=== PATIENT | male | born 1990 | race Caucasian/White ===

== ENCOUNTER 2020-03-20 10:11 | Inpatient (IN) | payer SELFPAY ==
[2020-03-20] MEDS ORDERED: Labetalol 100 MG/20 ML MDV IVPUSH ONE (11:07)
[2020-03-20] MEDS ORDERED: Lisinopril/Hydrochlorothiazide 10-12.5 MG Tab PO ONE (11:08)
[2020-03-20] MEDS ORDERED: Sodium Chloride 0.9% 10 ML Syringe FLUSH PRN (11:08)
[2020-03-20] MEDS ORDERED: Sodium Chloride 0.9% 2.5 ML Syringe FLUSH PRN ×2 (11:08→13:25)
--- NOTE | 2020-03-20 11:27 | EDM.PDOC ---
ED HPI GENERAL MEDICAL PROBLEM - General Chief Complaint: General Stated Complaint: BODY ACHES Time Seen by Provider: 03/20/20 10:41 Source of Information: Reports: Patient History Limitations: Reports: No Limitations - History of Present Illness INITIAL COMMENTS - FREE TEXT/NARRATIVE: Presents to the emergency room reporting a 4-day history of feeling "like crap". He reports headache, dizziness, shortness of breath, chills and 1 day of fever up to 101.2. He reports no cough, chest pain, ear fullness, sinus congestion. He has taken DayQuil, NyQuil and cough drops without palliation. He did report that he had a cold symptoms about a week ago. No known Covid exposures. 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 He does not smoke. He has a history of hypertension and dyslipidemia as well as obesity. He has a prescription for his antihypertensive and gemfibrozil medications but he states he has not been taking them for the last 3 to 4 weeks. "I just forgot about them". He is unsure of his blood pressure medications but one is lisinopril/hctz. He has been slightly nauseated but has not vomited and is trying to keep his fluid intake up to 128 ounces a day. right upper abdomen Pain Score (Numeric/FACES): 0 - Related Data Allergies Allergy/AdvReac Type Severity Reaction Status Date / Time No Known Allergies Allergy Verified 03/20/20 10:34 Home Meds: Home Meds . [No Known Home Meds] 03/20/20 [History] Past Medical History Cardiovascular History: Reports: Hypertension - Infectious Disease History Infectious Disease History: Reports: Chicken Pox - Past Surgical History HEENT Surgical History: Reports: Oral Surgery, Tonsillectomy Social & Family History - Family History Family Medical History: No Pertinent Family History - Tobacco Use Tobacco Use Status *Q: Former Tobacco User Used Tobacco, but Quit: Yes Month/Year Tobacco Last Used: 2019 - Caffeine Use Caffeine Use: Reports: None - Recreational Drug Use Recreational Drug Use: No ED ROS GENERAL - Review of Systems Review Of Systems: Comprehensive ROS is negative, except as noted in HPI. ED EXAM, GENERAL - Physical Exam Exam: See Below General Appearance: Alert, No Apparent Distress Ears: Normal External Exam, Normal TMs Nose: Normal Inspection Throat/Mouth: Normal Inspection, Normal Oropharynx Head: Atraumatic, Normocephalic Neck: Normal Inspection Respiratory/Chest: No Respiratory Distress, Lungs Clear, Normal Breath Sounds Cardiovascular: Normal Peripheral Pulses, Regular Rate, Rhythm, No Murmur GI/Abdominal: Normal Bowel Sounds, Soft, No Organomegaly, Other (Right upper quadrant tenderness) Extremities: Normal Inspection Neurological: Alert, Oriented Psychiatric: Normal Affect, Normal Mood Skin Exam: Warm, Dry, Intact, Normal Color, No Rash Lymphatic: No Adenopathy Course - Vital Signs Last Recorded V/S: Last Vital Signs Temp 35.7 C L 03/20/20 10:34 Pulse 95 03/20/20 10:50 Resp 18 03/20/20 10:50 BP 162/94 H 03/20/20 10:34 Pulse Ox 94 L 03/20/20 10:53 - Orders/Labs/Meds Orders: Active Orders 24 hr Category Date Time Status Chest 1V Frontal [CR] Stat Exams 03/20/20 11:01 Ordered CBC WITH AUTO DIFF [HEME] Stat Lab 03/20/20 11:06 Ordered COMPREHENSIVE METABOLIC PN,CMP [CHEM] Stat Lab 03/20/20 11:06 Ordered CORONAVIRUS COVID-19 PCR PHL Stat Lab 03/20/20 10:56 Stop Req CORONAVIRUS COVID-19 RAPID [MOLEC] Stat Lab 03/20/20 10:56 Received Sodium Chloride 0.9% [Saline Flush] Med 03/20/20 11:08 Ordered 10 ml FLUSH ASDIRECTED PRN Sodium Chloride 0.9% [Saline Flush] Med 03/20/20 11:08 Ordered 2.5 ml FLUSH ASDIRECTED PRN Saline Lock Insert [OM.PC] Stat Oth 03/20/20 11:08 Ordered Medication Orders Sodium Chloride (Saline Flush) 10 ml FLUSH ASDIRECTED PRN PRN Reason: Keep Vein Open Sodium Chloride (Saline Flush) 2.5 ml FLUSH ASDIRECTED PRN PRN Reason: Keep Vein Open Meds: Medications Generic Name Dose Route Start Last Admin Trade Name Freq PRN Reason Stop Dose Admin Sodium Chloride 10 ml 03/20/20 11:08 Saline Flush FLUSH ASDIRECTED PRN Keep Vein Open Sodium Chloride 2.5 ml 03/20/20 11:08 Saline Flush FLUSH ASDIRECTED PRN Keep Vein Open Discontinued Medications Generic Name Dose Route Start Last Admin Trade Name Freq PRN Reason Stop Dose Admin Lisinopril/HCTZ 2 tab 03/20/20 11:08 Lisinopril-Hctz 10-12.5 Mg PO 03/20/20 11:09 ONETIME ONE Labetalol HCl 20 mg 03/20/20 11:07 Normodyne IVPUSH 03/20/20 11:08 ONETIME ONE Protocol Departure - Departure Time of Disposition: 12:52 Disposition: Admitted As Inpatient 68 Condition: Fair Clinical Impression: COVID-19, Hypoxemia, Pneumonia due to 2019 novel coronavirus - Discharge Information Referrals: PCP,Not In Area [Primary Care Provider] - Sepsis Event Note (ED) - Evaluation Sepsis Screening Result: Possible Sepsis Risk - Focused Exam Vital Signs: Vital Signs Temp Pulse Resp BP Pulse Ox 03/20/20 10:53 94 L 03/20/20 10:50 95 18 88 L 03/20/20 10:34 35.7 C L 108 H 19 162/94 H 90 L - My Orders Last 24 Hours: My Active Orders 03/20/20 10:56 CORONAVIRUS COVID-19 PCR PHL Stat CORONAVIRUS COVID-19 RAPID [MOLEC] Stat 03/20/20 11:01 Chest 1V Frontal [CR] Stat 03/20/20 11:06 CBC WITH AUTO DIFF [HEME] Stat COMPREHENSIVE METABOLIC PN,CMP [CHEM] Stat 03/20/20 11:08 Sodium Chloride 0.9% [Saline Flush] 10 ml FLUSH ASDIRECTED PRN Sodium Chloride 0.9% [Saline Flush] 2.5 ml FLUSH ASDIRECTED PRN Saline Lock Insert [OM.PC] Stat - Assessment/Plan Last 24 Hours: My Active Orders 03/20/20 10:56 CORONAVIRUS COVID-19 PCR PHL Stat CORONAVIRUS COVID-19 RAPID [MOLEC] Stat 03/20/20 11:01 Chest 1V Frontal [CR] Stat 03/20/20 11:06 CBC WITH AUTO DIFF [HEME] Stat COMPREHENSIVE METABOLIC PN,CMP [CHEM] Stat 03/20/20 11:08 Sodium Chloride 0.9% [Saline Flush] 10 ml FLUSH ASDIRECTED PRN Sodium Chloride 0.9% [Saline Flush] 2.5 ml FLUSH ASDIRECTED PRN Saline Lock Insert [OM.PC] Stat
[2020-03-20] MEDS ORDERED: Dexamethasone 4 MG Tab PO ONE (11:59)
[2020-03-20] MEDS ORDERED: Albuterol 6.7 GM Inhaler INH ONE (12:04)
[2020-03-20] MEDS ORDERED: Albuterol HFA 18 Gm Inhaler ONE (12:20)
[2020-03-20 12:25] LABS: BLOOD UREA NITROGEN,BUN 9 mg/dL (7.0-18.0); CHLORIDE,CL 99 mmol/L (98-107); GLUCOSE RANDOM 116 mg/dL (74-106); POTASSIUM,K 4.1 mmol/L (3.5-5.1); SODIUM,NA 136 mmol/L (136-148)
--- NOTE | 2020-03-20 12:25 | CR ---
Indication: Shortness of breath Technique: Chest 1 view Comparison: None Findings/Impression: Cardiovascular and mediastinum: Heart size appears within normal limits given AP technique and a lordotic projection. Pulmonary vasculature also appears within normal limits. Lungs and pleural space: Left upper lobe infiltrate consistent with pneumonia. COVID viral infection is possible. Smaller infiltrate may be present in the left lower lobe. Right lung is clear. No effusions and no pneumothorax. Bones and soft tissues: No acute findings. Dictated by Hossein Christy MD @ Mar 20 2020 12:21PM Signed by Dr. Hossein Christy @ Mar 20 2020 12:24PM
[2020-03-20] MEDS ORDERED: Ondansetron 4 MG/2 ML SDV IVPUSH PRN (13:17)
[2020-03-20] MEDS ORDERED: REMDESIVIR 200 MG in Sodium Chloride 0.9% 250 ML IV ONE (13:24)
[2020-03-20] MEDS ORDERED: Sodium Chloride 0.9% 500 ML IV ONE (13:25)
[2020-03-20] MEDS ORDERED: Pantoprazole 40 MG in Sodium Chloride 0.9% 10 ML IV ONE (13:25)
[2020-03-20] MEDS ORDERED: Acetaminophen 325 MG Tab PO PRN (13:25)
--- NOTE | 2020-03-20 13:35 | PCM.HP.2 ---
H&P History of Present Illness - General Date of Service: 03/20/20 Admit Problem/Dx: Admission Diagnosis/Problem Admission Diagnosis/Problem Hypoxemia Source of Information: Patient History Limitations: Reports: No Limitations - History of Present Illness Initial Comments - Free Text/Narative: This 29-year-old male with PMH of HTN and HLD along with obesity presented to the ER with complaints of neurolyse malaise and shortness of breath. He reports that approximately 1 week ago he started feeling like he was getting a cold with some mild sinus congestion and overall just not feeling well. He reports the last 3 to 4 days he had significantly worsened with fevers chills increasing shortness of breath with any activity dry cough along with nausea and vomiting. He denies any chest pain or palpitations. No abdominal pain no constipation or diarrhea. He reports he is urinating fine. He denies any focal neurological deficits. He reports that he has been to community with no known exposure to COVID-19. Denies any flu shot recently and declines a flu shot during this admission. He reports he has not tried any Tylenol or ibuprofen to help with headache. Reports the headache is more frontal no blurred vision or double vision. Denies any noise or light intolerance. He reports he quit smoking and using chewing tobacco approximately 1 year ago as well as quitting alcohol use. He denies any recreational drug use now. He reports that he has a history of hypertension and hyperlipidemia but has not taken meds for over 2 months. He reports he got his medications filled and [place] and has just not taken them. He reports no specific reason except for becky t he has forgotten. In the ER no leukocytosis noted hemoglobin noted at 15. Glucose 116 BUN creati nine stable no electrolyte abnormalities. AST ALT noted to be elevated at 119 and 151 respectively. Chest x-ray revealed left upper lobe infiltrate consistent with pneumonia Covid viral infection is possible small infiltrate may be present in left lower lobe right lung is clear no effusions or pneumothorax noted. He was treated with dexamethasone 6 mg in the ER. He was also noted to be hypoxic with sats 88% on room air with tachypnea on arrival. He was placed on 2 L satting 92 to 94% on this. He was also noted to be hypertensive 190s/ 110. He was given labetalol IV as well as lisinopril hydrochlorothiazide orally. Blood pressures have improved. He will be admitted for acute hypoxic respiratory failure and COVID-19 pneumonia as well as CAP. right upper abdomen Pain Score (Numeric/FACES): 0 - Related Data Allergies/Adverse Reactions: Allergies Allergy/AdvReac Type Severity Reaction Status Date / Time No Known Allergies Allergy Verified 03/20/20 10:34 Home Medications: Home Meds amLODIPine Besylate [Amlodipine Besylate] 10 mg PO DAILY 03/20/20 [History] cloNIDine [Catapres] 0.1 mg PO BID 03/20/20 [History] gemfibroziL [Gemfibrozil] 600 mg PO BID 03/20/20 [History] hydroCHLOROthiazide [Hydrochlorothiazide] 25 mg PO DAILY 03/20/20 [History] lisinopriL [Lisinopril] 40 mg PO DAILY 03/20/20 [History] Past Medical History Cardiovascular History: Reports: High Cholesterol, Hypertension. Denies: Afib, Blood Clots/VTE/DVT, CAD Respiratory History: Reports: None. Denies: Sleep Apnea, SOB Gastrointestinal History: Reports: None Musculoskeletal History: Reports: None Neurological History: Reports: None Endocrine/Metabolic History: Reports: Obesity/BMI 30+. Denies: Diabetes, Type II - Infectious Disease History Infectious Disease History: Reports: Chicken Pox - Past Surgical History HEENT Surgical History: Reports: Oral Surgery, Tonsillectomy Social & Family History - Family History Family Medical History: No Pertinent Family History - Tobacco Use Tobacco Use Status *Q: Former Tobacco User Used Tobacco, but Quit: Yes Month/Year Tobacco Last Used: 2019 - Caffeine Use Caffeine Use: Reports: None - Alcohol Use Alcohol Use History: No Alcohol Use Comment: Quit alcohol use approximately 1 year ago - Recreational Drug Use Recreational Drug Use: No - Living Situation & Occupation Living situation: Reports: Single Occupation: Employed H&P Review of Systems - Review of Systems: Review Of Systems: See Below General: Reports: Fever, Chills, Malaise, Weakness, Fatigue, Decreased Appetite HEENT: Reports: Headaches (Frontal), Sinus Congestion. Denies: Visual Changes Pulmonary: Reports: Shortness of Breath, Cough. Denies: Sputum, Hemoptysis Cardiovascular: Reports: Dyspnea on Exertion, Lightheadedness. Denies: Chest Pain Gastrointestinal: Reports: Decreased Appetite, Nausea, Vomiting. Denies: Abdominal Pain, Black Stool, Bloody Stool, Diarrhea Genitourinary: Reports: No Symptoms. Denies: Dysuria, Frequency, Burning Musculoskeletal: Reports: No Symptoms Skin: Reports: No Symptoms. Denies: Rash Psychiatric: Reports: No Symptoms Neurological: Reports: No Symptoms. Denies: Confusion Hematologic/Lymphatic: Reports: No Symptoms Immunologic: Reports: No Symptoms Exam - Exam Exam: See Below - Vital Signs Vital Signs: Last Vital Signs Temp 96.3 F L 03/20/20 10:34 Pulse 95 03/20/20 12:04 Resp 21 H 03/20/20 12:04 BP 132/94 H 03/20/20 12:04 Pulse Ox 92 L 03/20/20 12:04 Weight: 170.097 kg - Exam Quality Assessment: Supplemental Oxygen (2 L), DVT Prophylaxis (Lovenox) General: Alert, Oriented, Cooperative, Mild Distress (Noted to be dyspneic and lightheaded with movement.) HEENT: Conjunctiva Clear, Posterior Pharynx Clear. No: Mucosa Moist & [place] (Dry) Lungs: Decreased Breath Sounds (Bibasilar), Crackles (Right and left lower lobes). No: Normal Respiratory Effort (Dyspnea noted with exertion and at re st), Wheezing Cardiovascular: Regular Rate, Regular Rhythm, Normal S2. No: Systolic Murmur GI/Abdominal Exam: Normal Bowel Sounds, Soft, Non-Tender, No Mass, Other (Obese abdomen limits assessment) Extremities: Normal Inspection, Normal Range of Motion, Non-Tender, No Pedal Edema Skin: Warm, Dry Neuro Extensive - Mental Status: Alert, Oriented x3 Neuro Extensive - Motor, Sensory, Reflexes: CN II-XII Intact Psychiatric: Alert, Normal Affect, Normal Mood - Patient Data Lab Results Last 24 hrs: Laboratory Results - last 24 hr 03/20/20 03/20/20 03/20/20 Range/Units 10:56 11:40 11:40 WBC 7.77 (4.0-11.0) K/uL RBC 4.95 (4.50-5.90) M/uL Hgb 15.0 (13.0-17.0) g/dL Hct 44.3 (38.0-50.0) % MCV 89.5 (80.0-98.0) fL MCH 30.3 (27.0-32.0) pg MCHC 33.9 (31.0-37.0) g/dL RDW Std Deviation 45.4 (28.0-62.0) fl RDW Coeff of Myrtle 14 (11.0-15.0) % Plt Count 229 (150-400) K/uL MPV 10.20 (7.40-12.00) fL Neut % (Auto) 80.9 H (48.0-80.0) % Lymph % (Auto) 13.1 L (16.0-40.0) % Mobile % (Auto) 5.9 (0.0-15.0) % Eos % (Auto) 0.0 (0.0-7.0) % Baso % (Auto) 0.1 (0.0-1.5) % Neut # (Auto) 6.3 H (1.4-5.7) K/uL Lymph # (Auto) 1.0 (0.6-2.4) K/uL Mobile # (Auto) 0.5 (0.0-0.8) K/uL Eos # (Auto) 0.0 (0.0-0.7) K/uL Baso # (Auto) 0.0 (0.0-0.1) K/uL Nucleated RBC % 0.0 /100WBC Nucleated RBCs # 0 K/uL Sodium 136 (136-148) mmol/L Potassium 4.1 (3.5-5.1) mmol/L Chloride 99 (98-107) mmol/L Carbon Dioxide 25.0 (21.0-32.0) mmol/L BUN 9 (7.0-18.0) mg/dL Creatinine 1.0 (0.8-1.3) mg/dL Est Cr Clr Drug Dosing 132.62 mL/min Estimated GFR (MDRD) > 60.0 ml/min Glucose 116 H (74-106) mg/dL Calcium 8.5 (8.5-10.1) mg/dL Total Bilirubin 0.6 (0.2-1.0) mg/dL AST 119 H (15-37) IU/L ALT 151 H (14-63) IU/L Alkaline Phosphatase 57 (46-116) U/L Total Protein 7.4 (6.4-8.2) g/dL Albumin 3.1 L (3.4-5.0) g/dL Globulin 4.3 H (2.6-4.0) g/dL Albumin/Globulin Ratio 0.7 L (0.9-1.6) SARS CoV-2 RNA Rapid JACINTA POSITIVE H (NEGATIVE) Result Diagrams: 03/20/20 11:40 03/20/20 11:40 Sepsis Event Note - Evaluation Sepsis Screening Result: Possible Sepsis Risk - Focused Exam Vital Signs: Vital Signs Temp Pulse Resp BP Pulse Ox 03/20/20 12:04 95 21 H 132/94 H 92 L 03/20/20 11:54 92 27 H 130/77 90 L 03/20/20 11:41 88 20 123/75 93 L 03/20/20 11:26 102 H 20 197/115 H 94 L 03/20/20 10:53 94 L 03/20/20 10:50 95 18 88 L 03/20/20 10:34 96.3 F L 108 H 19 162/94 H 90 L - Problem List (1) Acute respiratory failure with hypoxia SNOMED Code(s): 64779882, 823233123 ICD Code: J96.01 - ACUTE RESPIRATORY FAILURE WITH HYPOXIA Status: Acute Current Visit: Yes (2) COVID-19 SNOMED Code(s): 910355338 ICD Code: U07.1 - COVID-19 Status: Acute Current Visit: Yes (3) CAP (community acquired pneumonia) SNOMED Code(s): 551925548 ICD Code: J18.9 - PNEUMONIA, UNSPECIFIED ORGANISM Status: Acute Current Visit: Yes (4) Obesity SNOMED Code(s): 815546823, 359622192 ICD Code: E66.9 - OBESITY, UNSPECIFIED Status: Chronic Current Visit: Yes (5) Hypertension, uncontrolled SNOMED Code(s): 12718887, 05244860 ICD Code: I10 - ESSENTIAL (PRIMARY) HYPERTENSION Status: Chronic Current Visit: Yes (6) HLD (hyperlipidemia) SNOMED Code(s): 05147493 ICD Code: E78.5 - HYPERLIPIDEMIA, UNSPECIFIED Status: Chronic Current Visit: Yes (7) Transaminitis SNOMED Code(s): 502636386, 512541600 ICD Code: R74.01 - ELEVATION OF LEVELS OF LIVER TRANSAMINASE LEVELS Status: Acute Current Visit: Yes Problem List Initiated/Reviewed/Updated: Yes Orders Last 24hrs: Active Orders 24 hr Category Date Time Status Patient Status [ADT] Stat ADT 03/20/20 12:42 Active Intake and Output [RC] QSHIFT Care 03/20/20 13:26 Ordered Oxygen Therapy [RC] PRN Care 03/20/20 13:25 Ordered RT Post Treatment Assessment [RC] Click to Edit Care 03/20/20 12:04 Active RT Pre-Treatment Assessment [RC] Click to Edit Care 03/20/20 12:04 Active Up With Assistance [RC] ASDIRECTED Care 03/20/20 13:25 Ordered VTE/DVT Education [RC] PER UNIT ROUTINE Care 03/20/20 13:25 Ordered Vital Signs [RC] Q4H Care 03/20/20 13:25 Ordered Regular Diet [DIET] Diet 03/20/20 Lunch Ordered Ang Chest [CT] Urgent Exams 03/20/20 13:25 Ordered CBC WITH AUTO DIFF [HEME] AM Lab 03/21/20 05:11 Ordered COMPREHENSIVE METABOLIC PN,CMP [CHEM] AM Lab 03/21/20 05:11 Ordered CORONAVIRUS COVID-19 PCR PHL Stat Lab 03/20/20 10:56 Stop Req MAGNESIUM [CHEM] AM Lab 03/21/20 05:11 Ordered Acetaminophen [TylenoL] Med 03/20/20 13:25 Ordered 650 mg PO Q4H PRN Enoxaparin [Lovenox] Med 03/20/20 13:30 Ordered 40 mg SUBCUT Q12H Ondansetron [Zofran] Med 03/20/20 13:17 Active 4 mg IVPUSH Q4H PRN Pantoprazole [ProTONIX IV] 40 mg Med 03/20/20 13:25 Ordered Sodium Chloride 0.9% [Normal Saline] 10 ml IV ONETIME Remdesivir 100 mg Med 03/21/20 13:30 Ordered Sodium Chloride 0.9% [Normal Saline] 100 ml IV Q24H Remdesivir 200 mg Med 03/20/20 13:24 Ordered Sodium Chloride 0.9% [Normal Saline] 250 ml IV ONETIME Sodium Chloride 0.9% [Normal Saline] 500 ml Med 03/20/20 13:25 Ordered IV ONETIME Sodium Chloride 0.9% [Saline Flush] Med 03/20/20 13:25 Ordered 2.5 ml FLUSH ASDIRECTED PRN dexAMETHasone Med 03/21/20 09:00 Ordered 6 mg PO DAILY Saline Lock Insert [OM.PC] Routine Oth 03/20/20 13:25 Ordered Saline Lock Insert [OM.PC] Stat Oth 03/20/20 11:08 Ordered Resuscitation Status Routine Resus Stat 03/20/20 13:25 Ordered Medication Orders Ondansetron HCl (Zofran) 4 mg IVPUSH Q4H PRN PRN Reason: Nausea Assessment/Plan Comment:: This 29-year-old male admitted with acute hypoxic respiratory failure COVID-19 pneumonia and CAP 1. Acute hypoxic respiratory failure/COVID-19 pneumonia/CAP -Oxygen to keep sats greater than 90% wean as possible. -Start remdesivir 200 mg IV x1 dose then 100 mg IV daily x4 doses -Dexamethasone 6 mg p.o. daily -Encouraged prone or at least left side-lying position to encourage oxygenation. He verbalized understanding -I-S and Acapella use -We will give Levaquin 750 mg IV daily for possible CAP -We will obtain CTA of the chest to rule out a blood clot and to further evaluate opacities noted on chest x-ray -Lovenox 40 mg every 12 -Monitor LFTs daily with remdesivir treatment -Does seem slightly dehydrated secondary to nausea and vomiting from COVID-19 we will give 500 ml NS bolus now and monitor -Discussed convalescent plasma administration with him. I have spoken with Deonte and provided information regarding convalescent plasma. I offered them the "fact sheet for patients and parents/caregivers" for COVID-19 convalescent zack encinas to read and review. He discussed this with his sister via the phone as well. As stated the therapy has been approved by emergency use authorization process and has not fully been FDA reviewed or approved. I shared potential risks from the therapy including transmission of blood-borne pathogen such as HIV and hepatitis C, allergic and transfusion related reactions, post transfusion purpura. Additionally theoretical risks include a phenomenon called antibody dependent enhancement of infection or attenuation of immune response that may make patients more susceptible to reinfection. I discussed there are other potential treatments options that are currently not FDA approved to treat COVID-19. All questions and concerns addressed and answered. Patient and family voiced understanding and agreed to proceed with treatment with convalescent plasma. Consent signed and placed in chart. 2. Transaminitis -Likely related to viral infection - will monitor daily 3. Hypertension uncontrolled/HLD -We will obtain medications most recently prescribed by PCP [place] -Monitor blood pressure and slowly restart medications VTE prophylaxis: Lovenox CODE STATUS: Full code Dispo: 2 to 3 days pending improvement
[2020-03-20] MEDS ORDERED: Albuterol/Ipratropium 4 GM Inhalation Spray INH PRN (13:48)
[2020-03-20] MEDS: Levofloxacin/Dextrose 5%-Water 750 MG in Premix Bag 1 BAG IV SCH (13:56)
[2020-03-20] MEDS: Enoxaparin 40 MG/0.4 ML Syringe SUBCUT SCH (13:57)
[2020-03-20 14:01] LABS: HEMOGLOBIN A1C 5.4 %
[2020-03-20] MEDS ORDERED: Iopamidol 755 MG/ML 500 ML Multipack Bottle IVPUSH STA (15:09)
--- NOTE | 2020-03-20 16:08 | CT ---
INDICATION: COVID positive, hypoxia, dyspnea TECHNIQUE: CT chest pulmonary PE protocol acquired with 75 cc Isovue 370 COMPARISON: Chest radiograph from same date FINDINGS: Cardiovascular structures: Suboptimal opacification of the pulmonary arteries. Although no large central pulmonary embolism is seen, the remainder of the pulmonary arterial tree cannot be adequately evaluated with this exam. Heart size is normal. No sign of aneurysm in the thoracic aorta. Mediastinum and edward: 1.0 cm right paratracheal lymph node Lungs: Patchy ground-glass and airspace opacities in both lungs. Pleura and pericardium: Trace bilateral effusions. Chest wall and axilla: No mass or adenopathy. Upper abdomen: Unremarkable. Bones: No significant findings. IMPRESSION: Suboptimal opacification of the pulmonary arteries. Although no large central pulmonary embolism is seen, the remainder of the pulmonary arterial tree cannot be adequately evaluated with this exam. Patchy ground-glass and airspace opacities in both lungs may represent COVID-19 or combination of COVID-19 and superimposed bacterial infection. Please note that all CT scans at this facility use dose modulation, iterative reconstruction, and/or weight-based dosing when appropriate to reduce radiation dose to as low as reasonably achievable. Dictated by Jennifer Ojeda MD @ Mar 20 2020 4:01PM Signed by Dr. Jennifer Ojeda @ Mar 20 2020 4:06PM
[2020-03-20] MEDS: Gemfibrozil 600 MG Tab PO SCH (20:43)
[2020-03-20] MEDS: cloNIDine 0.1 MG Tab PO SCH (20:43)
[2020-03-20] MEDS: Benzonatate 100 MG Cap PO PRN (20:44)
[2020-03-21] MEDS: Enoxaparin 40 MG/0.4 ML Syringe SUBCUT SCH ×2 (01:15→13:22)
[2020-03-21 07:12] LABS: BLOOD UREA NITROGEN,BUN 15 mg/dL (7.0-18.0); CARBON DIOXIDE,CO2 28.3 mmol/L (21.0-32.0); CHLORIDE,CL 101 mmol/L (98-107); GLUCOSE RANDOM 130 mg/dL (74-106); POTASSIUM,K 4.4 mmol/L (3.5-5.1); SODIUM,NA 137 mmol/L (136-148)
[2020-03-21] MEDS: Hydrochlorothiazide 25 MG Tab PO SCH (09:27)
[2020-03-21] MEDS: Gemfibrozil 600 MG Tab PO SCH ×2 (09:28→22:10)
[2020-03-21] MEDS: cloNIDine 0.1 MG Tab PO SCH ×2 (09:28→22:10)
[2020-03-21] MEDS: Dexamethasone 4 MG Tab PO SCH (09:28)
[2020-03-21] MEDS: amLODIPine 5 MG Tab PO SCH (09:28)
[2020-03-21] MEDS: Lisinopril 10 MG Tab PO SCH (09:30)
--- NOTE | 2020-03-21 11:30 | PCM.PN ---
- General Info Date of Service: 03/21/20 Admission Dx/Problem (Free Text): Admission Diagnosis/Problem Admission Diagnosis/Problem Hypoxemia Functional Status: Reports: Pain Controlled, Tolerating Diet, Ambulating, Urinating - Review of Systems General: Reports: Weakness, Fatigue, Malaise, Night Sweats. Denies: Fever, Chills, Appetite HEENT: Denies: Dysphasia, Ear Pain, Eye Pain, Headaches Pulmonary: Reports: Shortness of Breath, Cough. Denies: Pleuritic Chest Pain, Sputum, Hemoptysis, Wheezing Cardiovascular: Reports: Dyspnea on Exertion. Denies: Chest Pain, Palpitations, Edema, Lightheadedness Gastrointestinal: Denies: Abdominal Pain, Constipation, Decreased Appetite Genitourinary: Denies: Frequency, Burning, Pain, Urgency Musculoskeletal: Denies: Neck Pain, Shoulder Pain, Arm Pain Skin: Denies: Cyanosis, Jaundice - Patient Data Vitals - Most Recent: Last Vital Signs Temp 36.4 C 03/21/20 09:25 Pulse 78 03/21/20 09:25 Resp 18 03/21/20 09:25 BP 130/78 03/21/20 09:30 Pulse Ox 93 L 03/21/20 09:25 Weight - Most Recent: 170.097 kg I&O - Last 24 Hours: Intake & Output 03/20/20 03/21/20 03/21/20 22:59 06:59 14:59 Intake Total 205 1000 Output Total 0 500 Balance 205 500 Lab Results Last 24 Hours: Laboratory Results - last 24 hr 03/20/20 03/20/20 03/20/20 Range/Units 11:40 11:40 11:40 WBC 7.77 (4.0-11.0) K/uL RBC 4.95 (4.50-5.90) M/uL Hgb 15.0 (13.0-17.0) g/dL Hct 44.3 (38.0-50.0) % MCV 89.5 (80.0-98.0) fL MCH 30.3 (27.0-32.0) pg MCHC 33.9 (31.0-37.0) g/dL RDW Std Deviation 45.4 (28.0-62.0) fl RDW Coeff of Myrtle 14 (11.0-15.0) % Plt Count 229 (150-400) K/uL MPV 10.20 (7.40-12.00) fL Neut % (Auto) 80.9 H (48.0-80.0) % Lymph % (Auto) 13.1 L (16.0-40.0) % Teller % (Auto) 5.9 (0.0-15.0) % Eos % (Auto) 0.0 (0.0-7.0) % Baso % (Auto) 0.1 (0.0-1.5) % Neut # (Auto) 6.3 H (1.4-5.7) K/uL Lymph # (Auto) 1.0 (0.6-2.4) K/uL Teller # (Auto) 0.5 (0.0-0.8) K/uL Eos # (Auto) 0.0 (0.0-0.7) K/uL Baso # (Auto) 0.0 (0.0-0.1) K/uL Nucleated RBC % 0.0 /100WBC Nucleated RBCs # 0 K/uL Sodium 136 (136-148) mmol/L Potassium 4.1 (3.5-5.1) mmol/L Chloride 99 (98-107) mmol/L Carbon Dioxide 25.0 (21.0-32.0) mmol/L BUN 9 (7.0-18.0) mg/dL Creatinine 1.0 (0.8-1.3) mg/dL Est Cr Clr Drug Dosing 132.62 mL/min Estimated GFR (MDRD) > 60.0 ml/min Glucose 116 H (74-106) mg/dL Hemoglobin A1c 5.4 (4.5 - 6.2) % Calcium 8.5 (8.5-10.1) mg/dL Magnesium (1.8-2.4) mg/dL Total Bilirubin 0.6 (0.2-1.0) mg/dL AST 119 H (15-37) IU/L ALT 151 H (14-63) IU/L Alkaline Phosphatase 57 (46-116) U/L Total Protein 7.4 (6.4-8.2) g/dL Albumin 3.1 L (3.4-5.0) g/dL Globulin 4.3 H (2.6-4.0) g/dL Albumin/Globulin Ratio 0.7 L (0.9-1.6) Blood Type Antibody Screen 03/20/20 03/21/20 03/21/20 Range/Units 16:05 05:38 05:38 WBC 7.48 (4.0-11.0) K/uL RBC 4.67 (4.50-5.90) M/uL Hgb 14.0 (13.0-17.0) g/dL Hct 42.5 (38.0-50.0) % MCV 91.0 (80.0-98.0) fL MCH 30.0 (27.0-32.0) pg MCHC 32.9 (31.0-37.0) g/dL RDW Std Deviation 46.7 (28.0-62.0) fl RDW Coeff of Myrtle 14 (11.0-15.0) % Plt Count 278 (150-400) K/uL MPV 10.50 (7.40-12.00) fL Neut % (Auto) 77.8 (48.0-80.0) % Lymph % (Auto) 14.7 L (16.0-40.0) % Teller % (Auto) 7.4 (0.0-15.0) % Eos % (Auto) 0.0 (0.0-7.0) % Baso % (Auto) 0.1 (0.0-1.5) % Neut # (Auto) 5.8 H (1.4-5.7) K/uL Lymph # (Auto) 1.1 (0.6-2.4) K/uL Teller # (Auto) 0.6 (0.0-0.8) K/uL Eos # (Auto) 0.0 (0.0-0.7) K/uL Baso # (Auto) 0.0 (0.0-0.1) K/uL Nucleated RBC % 0.0 /100WBC Nucleated RBCs # 0 K/uL Sodium 137 (136-148) mmol/L Potassium 4.4 (3.5-5.1) mmol/L Chloride 101 (98-107) mmol/L Carbon Dioxide 28.3 (21.0-32.0) mmol/L BUN 15 (7.0-18.0) mg/dL Creatinine 1.1 (0.8-1.3) mg/dL Est Cr Clr Drug Dosing 120.56 mL/min Estimated GFR (MDRD) > 60.0 ml/min Glucose 130 H (74-106) mg/dL Hemoglobin A1c (4.5 - 6.2) % Calcium 8.8 (8.5-10.1) mg/dL Magnesium 2.4 (1.8-2.4) mg/dL Total Bilirubin 0.6 (0.2-1.0) mg/dL AST 55 H (15-37) IU/L ALT 119 H (14-63) IU/L Alkaline Phosphatase 57 (46-116) U/L Total Protein 7.4 (6.4-8.2) g/dL Albumin 3.0 L (3.4-5.0) g/dL Globulin 4.4 H (2.6-4.0) g/dL Albumin/Globulin Ratio 0.7 L (0.9-1.6) Blood Type O POSITIVE Antibody Screen NEGATIVE Med Orders - Current: Current Medications Acetaminophen (Tylenol) 650 mg PO Q4H PRN PRN Reason: Pain (Mild 1-3)/fever Albuterol/Ipratropium (Combivent Respimat) 0 gm INH Q4H PRN PRN Reason: Dyspnea Amlodipine Besylate (Norvasc) 10 mg PO DAILY [facility] Last Admin: 03/21/20 09:28 Dose: 10 mg Documented by: Benzonatate (Tessalon Perles) 100 mg PO TID PRN PRN Reason: Cough Last Admin: 03/20/20 20:44 Dose: 100 mg Documented by: Clonidine HCl (Catapres) 0.1 mg PO BID [facility] Last Admin: 03/21/20 09:28 Dose: 0.1 mg Documented by: Dexamethasone (Dexamethasone) 6 mg PO DAILY [facility] Stop: 03/29/20 09:01 Last Admin: 03/21/20 09:28 Dose: 6 mg Documented by: Enoxaparin Sodium (Lovenox) 40 mg SUBCUT Q12H [facility] Last Admin: 03/21/20 01:15 Dose: 40 mg Documented by: Gemfibrozil (Lopid) 600 mg PO BID [facility] Last Admin: 03/21/20 09:28 Dose: 600 mg Documented by: Hydrochlorothiazide (Hydrochlorothiazide) 25 mg PO DAILY [facility] Last Admin: 03/21/20 09:27 Dose: 25 mg Documented by: Levofloxacin/Dextrose 750 mg/ (Premix) 150 mls @ 100 mls/hr IV Q24H [facility] Last Admin: 03/20/20 13:56 Dose: 100 mls/hr Documented by: Remdesivir 100 mg/ Sodium (Chloride) 100 mls @ 100 mls/hr IV Q24H [facility] Stop: 03/24/20 14:29 Lisinopril (Prinivil) 40 mg PO DAILY [facility] Last Admin: 03/21/20 09:30 Dose: 40 mg Documented by: Ondansetron HCl (Zofran) 4 mg IVPUSH Q4H PRN PRN Reason: Nausea Last Admin: 03/20/20 13:28 Dose: 4 mg Documented by: Sodium Chloride (Saline Flush) 2.5 ml FLUSH ASDIRECTED PRN PRN Reason: Keep Vein Open Discontinued Medications Albuterol (Proventil Hfa) 0 gm INH ONETIME ONE Stop: 03/20/20 12:05 Last Admin: 03/20/20 13:01 Dose: Not Given Documented by: Albuterol (Ventolin Hfa) Confirm Administered Dose 18 gm .ROUTE .STK-MED ONE Stop: 03/20/20 12:21 Last Admin: 03/20/20 12:27 Dose: 1 puff Documented by: Dexamethasone (Dexamethasone) 6 mg PO ONETIME ONE Stop: 03/20/20 12:00 Last Admin: 03/20/20 12:24 Dose: 6 mg Documented by: Lisinopril/HCTZ (Lisinopril-Hctz 10-12.5 Mg) 2 tab PO ONETIME ONE Stop: 03/20/20 11:09 Last Admin: 03/20/20 11:23 Dose: 2 tab Documented by: Remdesivir 100 mg/ Sodium (Chloride) 100 mls @ 100 mls/hr IV Q24H [facility] Stop: 03/24/20 14:29 Remdesivir 200 mg/ Sodium (Chloride) 250 mls @ 250 mls/hr IV ONETIME ONE Stop: 03/20/20 13:25 Last Admin: 03/20/20 14:26 Dose: 250 mls/hr Documented by: Sodium Chloride (Normal Saline) 500 mls @ 999 mls/hr IV ONETIME ONE Stop: 03/20/20 13:55 Last Admin: 03/20/20 14:25 Dose: 999 mls/hr Documented by: Pantoprazole Sodium 40 mg/ (Sodium Chloride) 10 mls @ 300 mls/hr IV ONETIME ONE Stop: 03/20/20 13:26 Last Admin: 03/20/20 13:59 Dose: 300 mls/hr Documented by: Iopamidol (Isovue Multipack-370 (76%)) 75 ml IVPUSH ONETIME STA Stop: 03/20/20 15:10 Last Admin: 03/20/20 15:18 Dose: 75 ml Documented by: Labetalol HCl (Normodyne) 20 mg IVPUSH ONETIME ONE; Protocol Stop: 03/20/20 11:08 Last Admin: 03/20/20 11:22 Dose: 20 mg Documented by: Sodium Chloride (Saline Flush) 10 ml FLUSH ASDIRECTED PRN PRN Reason: Keep Vein Open Last Admin: 03/20/20 11:23 Dose: 10 ml Documented by: Sodium Chloride (Saline Flush) 2.5 ml FLUSH ASDIRECTED PRN PRN Reason: Keep Vein Open Last Admin: 03/20/20 11:23 Dose: 2.5 ml Documented by: - Exam Quality Assessment: Supplemental Oxygen General: Alert, Oriented, Cooperative, Mild Distress Lungs: Decreased Breath Sounds, Crackles, Rales Cardiovascular: Regular Rate, Regular Rhythm, No Murmurs GI/Abdominal Exam: Normal Bowel Sounds, Soft, Non-Tender Sepsis Event Note - Evaluation Sepsis Screening Result: No Definite Risk - Focused Exam Vital Signs: Vital Signs Temp Pulse Resp BP BP Pulse Ox 03/21/20 09:30 130/78 03/21/20 09:28 130/78 03/21/20 09:25 36.4 C 78 18 130/72 93 L 03/21/20 01:00 36.3 C 88 20 128/68 92 L - Problem List & Annotations (1) Acute respiratory failure with hypoxia SNOMED Code(s): 71929804, 478581521 Code(s): J96.01 - ACUTE RESPIRATORY FAILURE WITH HYPOXIA Status: Acute Current Visit: Yes (2) CAP (community acquired pneumonia) SNOMED Code(s): 417682414 Code(s): J18.9 - PNEUMONIA, UNSPECIFIED ORGANISM Status: Acute Current Visit: Yes (3) COVID-19 SNOMED Code(s): 941069397 Code(s): U07.1 - COVID-19 Status: Acute Current Visit: Yes (4) Hypoxemia SNOMED Code(s): 860758593 Code(s): R09.02 - HYPOXEMIA Status: Acute Current Visit: Yes (5) Pneumonia due to 2019 novel coronavirus SNOMED Code(s): 007133141704779981 Code(s): U07.1 - COVID-19; J12.89 - OTHER VIRAL PNEUMONIA Status: Acute Current Visit: Yes (6) HLD (hyperlipidemia) SNOMED Code(s): 20058014 Code(s): E78.5 - HYPERLIPIDEMIA, UNSPECIFIED Status: Chronic Current Visit: Yes (7) Hypertension, uncontrolled SNOMED Code(s): 08812197, 01012610 Code(s): I10 - ESSENTIAL (PRIMARY) HYPERTENSION Status: Chronic Current Visit: Yes - Problem List Review Problem List Initiated/Reviewed/Updated: Yes - Plan Plan:: This 29-year-old male admitted with acute hypoxic respiratory failure COVID-19 pneumonia and CAP 1. Acute hypoxic respiratory failure/COVID-19 pneumonia/CAP -Oxygen to keep sats greater than 90% wean as possible. -cont 100 mg IV daily x4 doses total -Dexamethasone 6 mg p.o. daily -Encouraged prone or at least left side-lying position to encourage oxygenation again. -I-S and Acapella use -cont Levaquin 750 mg IV daily for possible CAP -We will obtain CTA of the chest to rule out a blood clot and to further evaluate opacities noted on chest x-ray -Lovenox 40 mg every 12 -Monitor LFTs daily with remdesivir treatment - 2nd unit of plasma to be transfused today 2. Transaminitis -Likely related to viral infection - improving 3. Hypertension uncontrolled/HLD -Monitor blood pressure and slowly restart medications VTE prophylaxis: Lovenox CODE STATUS: Full code Dispo: 2 to 3 days pending improvement
[2020-03-21] MEDS ORDERED: Albuterol/Ipratropium 4 GM Inhalation Spray INH SCH (12:45)
[2020-03-21] MEDS: Levofloxacin/Dextrose 5%-Water 750 MG in Premix Bag 1 BAG IV SCH (13:14)
[2020-03-21] MEDS ORDERED: REMDESIVIR 100 MG in Sodium Chloride 0.9% 100 ML IV SCH (13:30)
[2020-03-21] MEDS: REMDESIVIR 100 MG in Sodium Chloride 0.9% 100 ML IV SCH (13:33)
[2020-03-21] MEDS: Codeine/guaiFENesin 10-100 MG/5 ML Syrup 5 ML Cup PO PRN (13:33)
[2020-03-21] MEDS: Albuterol/Ipratropium 4 GM Inhalation Spray INH SCH ×3 (14:55→21:35)
[2020-03-22] MEDS: Benzonatate 100 MG Cap PO PRN ×2 (01:43→22:31)
[2020-03-22] MEDS: Enoxaparin 40 MG/0.4 ML Syringe SUBCUT SCH ×2 (01:43→13:42)
[2020-03-22] MEDS: Albuterol/Ipratropium 4 GM Inhalation Spray INH SCH ×6 (01:45→21:08)
[2020-03-22 06:36] LABS: BLOOD UREA NITROGEN,BUN 22 mg/dL (7.0-18.0); CARBON DIOXIDE,CO2 26.4 mmol/L (21.0-32.0); CHLORIDE,CL 102 mmol/L (98-107); GLUCOSE RANDOM 128 mg/dL (74-106); POTASSIUM,K 4.2 mmol/L (3.5-5.1); SODIUM,NA 138 mmol/L (136-148)
[2020-03-22] MEDS: cloNIDine 0.1 MG Tab PO SCH ×2 (08:37→20:03)
[2020-03-22] MEDS: Dexamethasone 4 MG Tab PO SCH (08:38)
[2020-03-22] MEDS: Gemfibrozil 600 MG Tab PO SCH ×2 (08:38→20:04)
[2020-03-22] MEDS: Hydrochlorothiazide 25 MG Tab PO SCH (08:39)
[2020-03-22] MEDS: amLODIPine 5 MG Tab PO SCH (08:39)
[2020-03-22] MEDS: Lisinopril 10 MG Tab PO SCH (08:40)
[2020-03-22] MEDS ORDERED: Furosemide 20 MG/2 ML VIAL IVPUSH ONE (10:08)
--- NOTE | 2020-03-22 13:18 | PCM.PN ---
- General Info Date of Service: 03/22/20 Admission Dx/Problem (Free Text): Admission Diagnosis/Problem Admission Diagnosis/Problem Hypoxemia Subjective Update: seen at bedside, no acute distress, states breathung is slightly better, continues to have cough Functional Status: Reports: Tolerating Diet, Ambulating, Urinating - Review of Systems General: Reports: Weakness, Fatigue. Denies: Fever Pulmonary: Reports: Shortness of Breath, Cough. Denies: Pleuritic Chest Pain, Sputum Cardiovascular: Reports: Dyspnea on Exertion. Denies: Chest Pain, Palpitations Gastrointestinal: Denies: Abdominal Pain, Constipation, Decreased Appetite, Diarrhea - Patient Data Vitals - Most Recent: Last Vital Signs Temp 36.6 C 03/22/20 12:00 Pulse 76 03/22/20 12:00 Resp 18 03/22/20 12:00 BP 98/53 L 03/22/20 12:00 Pulse Ox 95 03/22/20 12:00 Weight - Most Recent: 170.097 kg I&O - Last 24 Hours: Intake & Output 03/21/20 03/22/20 03/22/20 22:59 06:59 14:59 Intake Total 1007 600 Output Total 1000 Balance 1007 -400 Lab Results Last 24 Hours: Laboratory Results - last 24 hr 03/20/20 03/20/20 03/22/20 Range/Units 10:56 16:05 05:46 WBC 7.00 (4.0-11.0) K/uL RBC 4.64 (4.50-5.90) M/uL Hgb 14.0 (13.0-17.0) g/dL Hct 42.2 (38.0-50.0) % MCV 90.9 (80.0-98.0) fL MCH 30.2 (27.0-32.0) pg MCHC 33.2 (31.0-37.0) g/dL RDW Std Deviation 45.7 (28.0-62.0) fl RDW Coeff of Myrtle 14 (11.0-15.0) % Plt Count 323 (150-400) K/uL MPV 10.10 (7.40-12.00) fL Add Manual Diff YES Neutrophils % (Manual) 60 (48.0-80.0) % Band Neutrophils % 18 % Lymphocytes % (Manual) 12 L (16.0-40.0) % Monocytes % (Manual) 8 (0.0-15.0) % Myelocytes % 2 % Nucleated RBC % 0.0 /100WBC Absolute Seg Neuts 4.2 (1.4-5.7) Band Neutrophils # 1.3 Lymphocytes # (Manual) 0.8 (0.6-2.4) Monocytes # (Manual) 0.6 (0.0-0.8) Absolute Myelocytes 0.1 Nucleated RBCs # 0 K/uL Sodium (136-148) mmol/L Potassium (3.5-5.1) mmol/L Chloride (98-107) mmol/L Carbon Dioxide (21.0-32.0) mmol/L BUN (7.0-18.0) mg/dL Creatinine (0.8-1.3) mg/dL Est Cr Clr Drug Dosing mL/min Estimated GFR (MDRD) ml/min Glucose (74-106) mg/dL Calcium (8.5-10.1) mg/dL Phosphorus (2.6-4.7) mg/dL Magnesium (1.8-2.4) mg/dL Total Bilirubin (0.2-1.0) mg/dL AST (15-37) IU/L ALT (14-63) IU/L Alkaline Phosphatase (46-116) U/L Total Protein (6.4-8.2) g/dL Albumin (3.4-5.0) g/dL Globulin (2.6-4.0) g/dL Albumin/Globulin Ratio (0.9-1.6) SARS-CoV-2 (PCR) DETECTED H (NOT DETECT) Blood Type O POSITIVE Antibody Screen NEGATIVE 03/22/20 Range/Units 05:46 WBC (4.0-11.0) K/uL RBC (4.50-5.90) M/uL Hgb (13.0-17.0) g/dL Hct (38.0-50.0) % MCV (80.0-98.0) fL MCH (27.0-32.0) pg MCHC (31.0-37.0) g/dL RDW Std Deviation (28.0-62.0) fl RDW Coeff of Myrtle (11.0-15.0) % Plt Count (150-400) K/uL MPV (7.40-12.00) fL Add Manual Diff Neutrophils % (Manual) (48.0-80.0) % Band Neutrophils % % Lymphocytes % (Manual) (16.0-40.0) % Monocytes % (Manual) (0.0-15.0) % Myelocytes % % Nucleated RBC % /100WBC Absolute Seg Neuts (1.4-5.7) Band Neutrophils # Lymphocytes # (Manual) (0.6-2.4) Monocytes # (Manual) (0.0-0.8) Absolute Myelocytes Nucleated RBCs # K/uL Sodium 138 (136-148) mmol/L Potassium 4.2 (3.5-5.1) mmol/L Chloride 102 (98-107) mmol/L Carbon Dioxide 26.4 (21.0-32.0) mmol/L BUN 22 H (7.0-18.0) mg/dL Creatinine 1.1 (0.8-1.3) mg/dL Est Cr Clr Drug Dosing 120.56 mL/min Estimated GFR (MDRD) > 60.0 ml/min Glucose 128 H (74-106) mg/dL Calcium 9.2 (8.5-10.1) mg/dL Phosphorus 5.0 H (2.6-4.7) mg/dL Magnesium 2.5 H (1.8-2.4) mg/dL Total Bilirubin 0.5 (0.2-1.0) mg/dL AST 25 (15-37) IU/L ALT 87 H (14-63) IU/L Alkaline Phosphatase 53 (46-116) U/L Total Protein 7.3 (6.4-8.2) g/dL Albumin 3.0 L (3.4-5.0) g/dL Globulin 4.3 H (2.6-4.0) g/dL Albumin/Globulin Ratio 0.7 L (0.9-1.6) SARS-CoV-2 (PCR) (NOT DETECT) Blood Type Antibody Screen Med Orders - Current: Current Medications Acetaminophen (Tylenol) 650 mg PO Q4H PRN PRN Reason: Pain (Mild 1-3)/fever Albuterol/Ipratropium (Combivent Respimat) 0 gm INH Q4HRRT [facility] Last Admin: 03/22/20 09:30 Dose: 1 puff Documented by: Amlodipine Besylate (Norvasc) 10 mg PO DAILY [facility] Last Admin: 03/22/20 08:39 Dose: 10 mg Documented by: Benzonatate (Tessalon Perles) 100 mg PO TID PRN PRN Reason: Cough Last Admin: 03/22/20 01:43 Dose: 100 mg Documented by: Clonidine HCl (Catapres) 0.1 mg PO BID [facility] Last Admin: 03/22/20 08:37 Dose: 0.1 mg Documented by: Dexamethasone (Dexamethasone) 6 mg PO DAILY [facility] Stop: 03/29/20 09:01 Last Admin: 03/22/20 08:38 Dose: 6 mg Documented by: Enoxaparin Sodium (Lovenox) 40 mg SUBCUT Q12H [facility] Last Admin: 03/22/20 01:43 Dose: 40 mg Documented by: Gemfibrozil (Lopid) 600 mg PO BID [facility] Last Admin: 03/22/20 08:38 Dose: 600 mg Documented by: Guaifenesin/Codeine Phosphate (Robitussin Ac) 5 ml PO Q4H PRN PRN Reason: Cough Last Admin: 03/21/20 13:33 Dose: 5 ml Documented by: Hydrochlorothiazide (Hydrochlorothiazide) 25 mg PO DAILY [facility] Last Admin: 03/22/20 08:39 Dose: 25 mg Documented by: Levofloxacin/Dextrose 750 mg/ (Premix) 150 mls @ 100 mls/hr IV Q24H [facility] Last Admin: 03/21/20 13:14 Dose: 100 mls/hr Documented by: Remdesivir 100 mg/ Sodium (Chloride) 100 mls @ 100 mls/hr IV Q24H [facility] Stop: 03/24/20 14:29 Last Admin: 03/21/20 13:33 Dose: 100 mls/hr Documented by: Lisinopril (Prinivil) 40 mg PO DAILY [facility] Last Admin: 03/22/20 08:40 Dose: 40 mg Documented by: Ondansetron HCl (Zofran) 4 mg IVPUSH Q4H PRN PRN Reason: Nausea Last Admin: 03/20/20 13:28 Dose: 4 mg Documented by: Sodium Chloride (Saline Flush) 2.5 ml FLUSH ASDIRECTED PRN PRN Reason: Keep Vein Open Discontinued Medications Albuterol (Proventil Hfa) 0 gm INH ONETIME ONE Stop: 03/20/20 12:05 Last Admin: 03/20/20 13:01 Dose: Not Given Documented by: Albuterol (Ventolin Hfa) Confirm Administered Dose 18 gm .ROUTE .STK-MED ONE Stop: 03/20/20 12:21 Last Admin: 03/20/20 12:27 Dose: 1 puff Documented by: Albuterol/Ipratropium (Combivent Respimat) 0 gm INH Q4H PRN PRN Reason: Dyspnea Albuterol/Ipratropium (Combivent Respimat) 0 gm INH Q4H [facility] Last Admin: 03/21/20 18:21 Dose: Not Given Documented by: Dexamethasone (Dexamethasone) 6 mg PO ONETIME ONE Stop: 03/20/20 12:00 Last Admin: 03/20/20 12:24 Dose: 6 mg Documented by: Furosemide (Lasix) 20 mg IVPUSH NOW ONE Stop: 03/22/20 10:09 Last Admin: 03/22/20 10:21 Dose: 20 mg Documented by: Lisinopril/HCTZ (Lisinopril-Hctz 10-12.5 Mg) 2 tab PO ONETIME ONE Stop: 03/20/20 11:09 Last Admin: 03/20/20 11:23 Dose: 2 tab Documented by: Remdesivir 100 mg/ Sodium (Chloride) 100 mls @ 100 mls/hr IV Q24H [facility] Stop: 03/24/20 14:29 Remdesivir 200 mg/ Sodium (Chloride) 250 mls @ 250 mls/hr IV ONETIME ONE Stop: 03/20/20 13:25 Last Admin: 03/20/20 14:26 Dose: 250 mls/hr Documented by: Sodium Chloride (Normal Saline) 500 mls @ 999 mls/hr IV ONETIME ONE Stop: 03/20/20 13:55 Last Admin: 03/20/20 14:25 Dose: 999 mls/hr Documented by: Pantoprazole Sodium 40 mg/ (Sodium Chloride) 10 mls @ 300 mls/hr IV ONETIME ONE Stop: 03/20/20 13:26 Last Admin: 03/20/20 13:59 Dose: 300 mls/hr Documented by: Iopamidol (Isovue Multipack-370 (76%)) 75 ml IVPUSH ONETIME STA Stop: 03/20/20 15:10 Last Admin: 03/20/20 15:18 Dose: 75 ml Documented by: Labetalol HCl (Normodyne) 20 mg IVPUSH ONETIME ONE; Protocol Stop: 03/20/20 11:08 Last Admin: 03/20/20 11:22 Dose: 20 mg Documented by: Sodium Chloride (Saline Flush) 10 ml FLUSH ASDIRECTED PRN PRN Reason: Keep Vein Open Last Admin: 03/20/20 11:23 Dose: 10 ml Documented by: Sodium Chloride (Saline Flush) 2.5 ml FLUSH ASDIRECTED PRN PRN Reason: Keep Vein Open Last Admin: 03/20/20 11:23 Dose: 2.5 ml Documented by: Sepsis Event Note - Evaluation Sepsis Screening Result: No Definite Risk - Focused Exam Vital Signs: Vital Signs Temp Pulse Resp BP BP BP Pulse Ox 03/22/20 12:00 36.6 C 76 18 98/53 L 95 03/22/20 08:40 122/70 03/22/20 08:39 122/70 03/22/20 08:37 122/70 03/22/20 08:00 36.5 C 72 20 122/70 92 L 03/22/20 06:00 03/22/20 04:19 36.1 C 71 20 122/76 91 L Pulse Ox 03/22/20 12:00 03/22/20 08:40 03/22/20 08:39 03/22/20 08:37 03/22/20 08:00 03/22/20 06:00 91 L 03/22/20 04:19 - Problem List & Annotations (1) Acute respiratory failure with hypoxia SNOMED Code(s): 42209740, 581263872 Code(s): J96.01 - ACUTE RESPIRATORY FAILURE WITH HYPOXIA Status: Acute Current Visit: Yes (2) CAP (community acquired pneumonia) SNOMED Code(s): 512868490 Code(s): J18.9 - PNEUMONIA, UNSPECIFIED ORGANISM Status: Acute Current Visit: Yes (3) COVID-19 SNOMED Code(s): 966028060 Code(s): U07.1 - COVID-19 Status: Acute Current Visit: Yes (4) Hypoxemia SNOMED Code(s): 753794985 Code(s): R09.02 - HYPOXEMIA Status: Acute Current Visit: Yes (5) Pneumonia due to 2019 novel coronavirus SNOMED Code(s): 172599427077256834 Code(s): U07.1 - COVID-19; J12.89 - OTHER VIRAL PNEUMONIA Status: Acute Current Visit: Yes (6) HLD (hyperlipidemia) SNOMED Code(s): 73680058 Code(s): E78.5 - HYPERLIPIDEMIA, UNSPECIFIED Status: Chronic Current Visit: Yes (7) Hypertension, uncontrolled SNOMED Code(s): 16768762, 12674898 Code(s): I10 - ESSENTIAL (PRIMARY) HYPERTENSION Status: Chronic Current Visit: Yes - Problem List Review Problem List Initiated/Reviewed/Updated: Yes - My Orders Last 24 Hours: My Active Orders 03/21/20 12:27 Codeine/guaiFENesin [Robitussin AC] 5 ml PO Q4H PRN 03/21/20 14:00 Albuterol/Ipratropium [Combivent Respimat] 0 gm INH Q4HRRT - Plan Plan:: This 29-year-old male admitted with acute hypoxic respiratory failure COVID-19 pneumonia and CAP 1. Acute hypoxic respiratory failure/COVID-19 pneumonia/CAP -Oxygen to keep sats greater than 90% wean as possible. -cont 100 mg IV daily x4 doses total -Dexamethasone 6 mg p.o. daily -Encouraged prone or at least left side-lying position to encourage oxygenation again. -I-S and Acapella use -cont Levaquin 750 mg IV daily for possible CAP -We will obtain CTA of the chest to rule out a blood clot and to further evaluate opacities noted on chest x-ray -Lovenox 40 mg every 12 -Monitor LFTs daily with remdesivir treatment 2. Transaminitis -Likely related to viral infection - improving 3. Hypertension uncontrolled/HLD -Monitor blood pressure and slowly restart medications VTE prophylaxis: Lovenox CODE STATUS: Full code Dispo: 2 to 3 days pending improvement
[2020-03-22] MEDS: Codeine/guaiFENesin 10-100 MG/5 ML Syrup 5 ML Cup PO PRN ×2 (13:42→20:03)
[2020-03-22] MEDS: REMDESIVIR 100 MG in Sodium Chloride 0.9% 100 ML IV SCH (13:44)
[2020-03-22] MEDS: Levofloxacin/Dextrose 5%-Water 750 MG in Premix Bag 1 BAG IV SCH (15:07)
[2020-03-23] MEDS: Codeine/guaiFENesin 10-100 MG/5 ML Syrup 5 ML Cup PO PRN (01:18)
[2020-03-23] MEDS: Enoxaparin 40 MG/0.4 ML Syringe SUBCUT SCH ×2 (01:18→13:25)
[2020-03-23] MEDS: Albuterol/Ipratropium 4 GM Inhalation Spray INH SCH ×7 (01:55→22:46)
[2020-03-23 06:58] LABS: BLOOD UREA NITROGEN,BUN 27 mg/dL (7.0-18.0); CARBON DIOXIDE,CO2 27.3 mmol/L (21.0-32.0); CHLORIDE,CL 100 mmol/L (98-107); GLUCOSE RANDOM 118 mg/dL (74-106); SODIUM,NA 138 mmol/L (136-148)
[2020-03-23] MEDS: amLODIPine 5 MG Tab PO SCH (10:14)
[2020-03-23] MEDS: Lisinopril 10 MG Tab PO SCH (10:14)
[2020-03-23] MEDS: Dexamethasone 4 MG Tab PO SCH (10:15)
[2020-03-23] MEDS: Gemfibrozil 600 MG Tab PO SCH ×2 (10:16→20:19)
[2020-03-23] MEDS: cloNIDine 0.1 MG Tab PO SCH ×2 (10:16→20:20)
[2020-03-23] MEDS: Hydrochlorothiazide 25 MG Tab PO SCH (10:16)
--- NOTE | 2020-03-23 12:34 | PCM.PN ---
- General Info Date of Service: 03/23/20 Admission Dx/Problem (Free Text): Admission Diagnosis/Problem Admission Diagnosis/Problem Hypoxemia Subjective Update: seen at bedside, no acute distress, states breathing is slightly better, cough has improved Functional Status: Reports: Tolerating Diet, Ambulating, Urinating - Review of Systems General: Reports: Weakness, Fatigue. Denies: Fever, Malaise Pulmonary: Reports: Shortness of Breath, Cough. Denies: Pleuritic Chest Pain, Sputum, Hemoptysis Cardiovascular: Reports: Dyspnea on Exertion. Denies: Chest Pain, Palpitations, Orthopnea Gastrointestinal: Denies: Abdominal Pain, Constipation, Decreased Appetite Genitourinary: Denies: Dysuria, Frequency, Burning, Pain Musculoskeletal: Denies: Neck Pain, Shoulder Pain, Arm Pain - Patient Data Vitals - Most Recent: Last Vital Signs Temp 36.2 C 03/23/20 11:51 Pulse 74 03/23/20 11:51 Resp 18 03/23/20 11:51 BP 128/66 03/23/20 11:51 Pulse Ox 95 03/23/20 11:51 Weight - Most Recent: 170.097 kg I&O - Last 24 Hours: Intake & Output 03/22/20 03/23/20 03/23/20 22:59 06:59 14:59 Intake Total 1050 1200 Output Total 2500 1100 Balance -1450 100 Lab Results Last 24 Hours: Laboratory Results - last 24 hr 03/23/20 03/23/20 Range/Units 05:39 05:39 WBC 9.07 (4.0-11.0) K/uL RBC 4.91 (4.50-5.90) M/uL Hgb 14.7 (13.0-17.0) g/dL Hct 44.1 (38.0-50.0) % MCV 89.8 (80.0-98.0) fL MCH 29.9 (27.0-32.0) pg MCHC 33.3 (31.0-37.0) g/dL RDW Std Deviation 44.8 (28.0-62.0) fl RDW Coeff of Myrtle 14 (11.0-15.0) % Plt Count 378 (150-400) K/uL MPV 10.20 (7.40-12.00) fL Add Manual Diff YES Neutrophils % (Manual) 58 (48.0-80.0) % Band Neutrophils % 14 % Lymphocytes % (Manual) 20 (16.0-40.0) % Monocytes % (Manual) 8 (0.0-15.0) % Nucleated RBC % 0.0 /100WBC Absolute Seg Neuts 5.3 (1.4-5.7) Band Neutrophils # 1.3 Lymphocytes # (Manual) 1.8 (0.6-2.4) Monocytes # (Manual) 0.7 (0.0-0.8) Nucleated RBCs # 0 K/uL Sodium 138 (136-148) mmol/L Potassium 4.0 (3.5-5.1) mmol/L Chloride 100 (98-107) mmol/L Carbon Dioxide 27.3 (21.0-32.0) mmol/L BUN 27 H (7.0-18.0) mg/dL Creatinine 1.1 (0.8-1.3) mg/dL Est Cr Clr Drug Dosing 120.56 mL/min Estimated GFR (MDRD) > 60.0 ml/min Glucose 118 H (74-106) mg/dL Calcium 9.2 (8.5-10.1) mg/dL Phosphorus 5.0 H (2.6-4.7) mg/dL Magnesium 2.3 (1.8-2.4) mg/dL Total Bilirubin 0.5 (0.2-1.0) mg/dL AST 22 (15-37) IU/L ALT 75 H (14-63) IU/L Alkaline Phosphatase 54 (46-116) U/L Total Protein 7.4 (6.4-8.2) g/dL Albumin 3.1 L (3.4-5.0) g/dL Globulin 4.3 H (2.6-4.0) g/dL Albumin/Globulin Ratio 0.7 L (0.9-1.6) Med Orders - Current: Current Medications Acetaminophen (Tylenol) 650 mg PO Q4H PRN PRN Reason: Pain (Mild 1-3)/fever Albuterol/Ipratropium (Combivent Respimat) 0 gm INH Q4HRRT [facility] Last Admin: 03/23/20 10:19 Dose: 1 puff Documented by: Amlodipine Besylate (Norvasc) 10 mg PO DAILY [facility] Last Admin: 03/23/20 10:14 Dose: 10 mg Documented by: Benzonatate (Tessalon Perles) 100 mg PO TID PRN PRN Reason: Cough Last Admin: 03/22/20 22:31 Dose: 100 mg Documented by: Clonidine HCl (Catapres) 0.1 mg PO BID [facility] Last Admin: 03/23/20 10:16 Dose: 0.1 mg Documented by: Dexamethasone (Dexamethasone) 6 mg PO DAILY [facility] Stop: 03/29/20 09:01 Last Admin: 03/23/20 10:15 Dose: 6 mg Documented by: Enoxaparin Sodium (Lovenox) 40 mg SUBCUT Q12H [facility] Last Admin: 03/23/20 01:18 Dose: 40 mg Documented by: Gemfibrozil (Lopid) 600 mg PO BID [facility] Last Admin: 03/23/20 10:16 Dose: 600 mg Documented by: Guaifenesin/Codeine Phosphate (Robitussin Ac) 5 ml PO Q4H PRN PRN Reason: Cough Last Admin: 03/23/20 01:18 Dose: 5 ml Documented by: Hydrochlorothiazide (Hydrochlorothiazide) 25 mg PO DAILY [facility] Last Admin: 03/23/20 10:16 Dose: 25 mg Documented by: Levofloxacin/Dextrose 750 mg/ (Premix) 150 mls @ 100 mls/hr IV Q24H [facility] Last Admin: 03/22/20 15:07 Dose: 100 mls/hr Documented by: Remdesivir 100 mg/ Sodium (Chloride) 100 mls @ 100 mls/hr IV Q24H [facility] Stop: 03/24/20 14:29 Last Admin: 03/22/20 13:44 Dose: 100 mls/hr Documented by: Lisinopril (Prinivil) 40 mg PO DAILY [facility] Last Admin: 03/23/20 10:14 Dose: 40 mg Documented by: Ondansetron HCl (Zofran) 4 mg IVPUSH Q4H PRN PRN Reason: Nausea Last Admin: 03/20/20 13:28 Dose: 4 mg Documented by: Sodium Chloride (Saline Flush) 2.5 ml FLUSH ASDIRECTED PRN PRN Reason: Keep Vein Open Discontinued Medications Albuterol (Proventil Hfa) 0 gm INH ONETIME ONE Stop: 03/20/20 12:05 Last Admin: 03/20/20 13:01 Dose: Not Given Documented by: Albuterol (Ventolin Hfa) Confirm Administered Dose 18 gm .ROUTE .STK-MED ONE Stop: 03/20/20 12:21 Last Admin: 03/20/20 12:27 Dose: 1 puff Documented by: Albuterol/Ipratropium (Combivent Respimat) 0 gm INH Q4H PRN PRN Reason: Dyspnea Albuterol/Ipratropium (Combivent Respimat) 0 gm INH Q4H [facility] Last Admin: 03/21/20 18:21 Dose: Not Given Documented by: Dexamethasone (Dexamethasone) 6 mg PO ONETIME ONE Stop: 03/20/20 12:00 Last Admin: 03/20/20 12:24 Dose: 6 mg Documented by: Furosemide (Lasix) 20 mg IVPUSH NOW ONE Stop: 03/22/20 10:09 Last Admin: 03/22/20 10:21 Dose: 20 mg Documented by: Lisinopril/HCTZ (Lisinopril-Hctz 10-12.5 Mg) 2 tab PO ONETIME ONE Stop: 03/20/20 11:09 Last Admin: 03/20/20 11:23 Dose: 2 tab Documented by: Remdesivir 100 mg/ Sodium (Chloride) 100 mls @ 100 mls/hr IV Q24H [facility] Stop: 03/24/20 14:29 Remdesivir 200 mg/ Sodium (Chloride) 250 mls @ 250 mls/hr IV ONETIME ONE Stop: 03/20/20 13:25 Last Admin: 03/20/20 14:26 Dose: 250 mls/hr Documented by: Sodium Chloride (Normal Saline) 500 mls @ 999 mls/hr IV ONETIME ONE Stop: 03/20/20 13:55 Last Admin: 03/20/20 14:25 Dose: 999 mls/hr Documented by: Pantoprazole Sodium 40 mg/ (Sodium Chloride) 10 mls @ 300 mls/hr IV ONETIME ONE Stop: 03/20/20 13:26 Last Admin: 03/20/20 13:59 Dose: 300 mls/hr Documented by: Iopamidol (Isovue Multipack-370 (76%)) 75 ml IVPUSH ONETIME STA Stop: 03/20/20 15:10 Last Admin: 03/20/20 15:18 Dose: 75 ml Documented by: Labetalol HCl (Normodyne) 20 mg IVPUSH ONETIME ONE; Protocol Stop: 03/20/20 11:08 Last Admin: 03/20/20 11:22 Dose: 20 mg Documented by: Sodium Chloride (Saline Flush) 10 ml FLUSH ASDIRECTED PRN PRN Reason: Keep Vein Open Last Admin: 03/20/20 11:23 Dose: 10 ml Documented by: Sodium Chloride (Saline Flush) 2.5 ml FLUSH ASDIRECTED PRN PRN Reason: Keep Vein Open Last Admin: 03/20/20 11:23 Dose: 2.5 ml Documented by: - Exam Quality Assessment: Supplemental Oxygen General: Alert, Oriented, Cooperative Neck: Supple Lungs: Clear to Auscultation, Normal Respiratory Effort Cardiovascular: Regular Rate, Regular Rhythm, No Murmurs GI/Abdominal Exam: Normal Bowel Sounds, Soft, Non-Tender Sepsis Event Note - Evaluation Sepsis Screening Result: No Definite Risk - Focused Exam Vital Signs: Vital Signs Temp Pulse Resp BP BP BP Pulse Ox 03/23/20 11:51 36.2 C 74 18 128/66 95 03/23/20 10:16 124/61 03/23/20 10:14 124/61 03/23/20 10:00 36.2 C 73 18 124/61 92 L 03/23/20 04:02 36.1 C 68 19 116/66 97 03/23/20 01:20 20 96 - Problem List & Annotations (1) Acute respiratory failure with hypoxia SNOMED Code(s): 24607177, 948119887 Code(s): J96.01 - ACUTE RESPIRATORY FAILURE WITH HYPOXIA Status: Acute Current Visit: Yes (2) CAP (community acquired pneumonia) SNOMED Code(s): 838837186 Code(s): J18.9 - PNEUMONIA, UNSPECIFIED ORGANISM Status: Acute Current Visit: Yes (3) COVID-19 SNOMED Code(s): 815385823 Code(s): U07.1 - COVID-19 Status: Acute Current Visit: Yes (4) Hypoxemia SNOMED Code(s): 180961496 Code(s): R09.02 - HYPOXEMIA Status: Acute Current Visit: Yes (5) Pneumonia due to 2019 novel coronavirus SNOMED Code(s): 340057555132320677 Code(s): U07.1 - COVID-19; J12.89 - OTHER VIRAL PNEUMONIA Status: Acute Current Visit: Yes (6) HLD (hyperlipidemia) SNOMED Code(s): 94626911 Code(s): E78.5 - HYPERLIPIDEMIA, UNSPECIFIED Status: Chronic Current Visit: Yes (7) Hypertension, uncontrolled SNOMED Code(s): 43232702, 42101563 Code(s): I10 - ESSENTIAL (PRIMARY) HYPERTENSION Status: Chronic Current Visit: Yes - Problem List Review Problem List Initiated/Reviewed/Updated: Yes - Plan Plan:: This 29-year-old male admitted with acute hypoxic respiratory failure COVID-19 p neumonia and CAP 1. Acute hypoxic respiratory failure/COVID-19 pneumonia/CAP -Oxygen to keep sats greater than 90% wean as possible, on 4L now -cont 100 mg IV daily x4 doses total -Dexamethasone 6 mg p.o. daily -Encouraged prone or at least left side-lying position to encourage oxygenation again. -I-S and Acapella use -cont Levaquin 750 mg IV daily for possible CAP -Lovenox 40 mg every 12 -Monitor LFTs daily with remdesivir treatment 2. Transaminitis -Likely related to viral infection - improving 3. Hypertension uncontrolled/HLD -Monitor blood pressure and slowly restart medications VTE prophylaxis: Lovenox CODE STATUS: Full code Dispo: 2 to 3 days pending improvement
[2020-03-23] MEDS: Levofloxacin/Dextrose 5%-Water 750 MG in Premix Bag 1 BAG IV SCH (13:26)
[2020-03-23] MEDS: REMDESIVIR 100 MG in Sodium Chloride 0.9% 100 ML IV SCH (14:58)
[2020-03-24] MEDS: Albuterol/Ipratropium 4 GM Inhalation Spray INH SCH ×8 (00:43→21:35)
[2020-03-24] MEDS: Enoxaparin 40 MG/0.4 ML Syringe SUBCUT SCH ×2 (00:43→13:15)
[2020-03-24 07:34] LABS: BLOOD UREA NITROGEN,BUN 27 mg/dL (7.0-18.0); CARBON DIOXIDE,CO2 27.4 mmol/L (21.0-32.0); CHLORIDE,CL 99 mmol/L (98-107); GLUCOSE RANDOM 107 mg/dL (74-106); POTASSIUM,K 4.1 mmol/L (3.5-5.1); SODIUM,NA 136 mmol/L (136-148)
[2020-03-24] MEDS: cloNIDine 0.1 MG Tab PO SCH ×2 (09:22→20:27)
[2020-03-24] MEDS: Lisinopril 10 MG Tab PO SCH (09:22)
[2020-03-24] MEDS: Gemfibrozil 600 MG Tab PO SCH ×2 (09:22→20:27)
[2020-03-24] MEDS: Hydrochlorothiazide 25 MG Tab PO SCH (09:23)
[2020-03-24] MEDS: Dexamethasone 4 MG Tab PO SCH (09:23)
[2020-03-24] MEDS: amLODIPine 5 MG Tab PO SCH (09:23)
--- NOTE | 2020-03-24 13:01 | PCM.PN ---
- General Info Date of Service: 03/24/20 Admission Dx/Problem (Free Text): Admission Diagnosis/Problem Admission Diagnosis/Problem Hypoxemia Subjective Update: seen at bedside, no acute distress, states breathing is much better Functional Status: Reports: Pain Controlled - Review of Systems General: Denies: Fever, Weakness, Fatigue Cardiovascular: Reports: Dyspnea on Exertion. Denies: Chest Pain, Palpitations Gastrointestinal: Denies: Abdominal Pain, Constipation, Decreased Appetite Genitourinary: Denies: Dysuria, Frequency, Burning Musculoskeletal: Denies: Neck Pain, Shoulder Pain, Arm Pain - Patient Data Vitals - Most Recent: Last Vital Signs Temp 36.0 C L 03/24/20 08:00 Pulse 79 03/24/20 08:00 Resp 18 03/24/20 08:00 BP 137/75 03/24/20 09:23 Pulse Ox 95 03/24/20 10:00 Weight - Most Recent: 170.097 kg I&O - Last 24 Hours: Intake & Output 03/23/20 03/24/20 03/24/20 22:59 06:59 14:59 Intake Total 850 1200 Output Total 1325 1325 Balance -475 -125 Lab Results Last 24 Hours: Laboratory Results - last 24 hr 03/24/20 03/24/20 Range/Units 06:15 06:15 WBC 9.18 (4.0-11.0) K/uL RBC 5.11 (4.50-5.90) M/uL Hgb 15.5 (13.0-17.0) g/dL Hct 45.6 (38.0-50.0) % MCV 89.2 (80.0-98.0) fL MCH 30.3 (27.0-32.0) pg MCHC 34.0 (31.0-37.0) g/dL RDW Std Deviation 43.9 (28.0-62.0) fl RDW Coeff of Myrtle 13 (11.0-15.0) % Plt Count 406 H (150-400) K/uL MPV 10.20 (7.40-12.00) fL Add Manual Diff YES Neutrophils % (Manual) 68 (48.0-80.0) % Band Neutrophils % 3 % Lymphocytes % (Manual) 21 (16.0-40.0) % Monocytes % (Manual) 6 (0.0-15.0) % Metamyelocytes % 2 % Nucleated RBC % 0.0 /100WBC Absolute Seg Neuts 6.2 H (1.4-5.7) Band Neutrophils # 0.3 Lymphocytes # (Manual) 1.9 (0.6-2.4) Monocytes # (Manual) 0.6 (0.0-0.8) Absolute Metamyelocyte 0.2 Nucleated RBCs # 0 K/uL Sodium 136 (136-148) mmol/L Potassium 4.1 (3.5-5.1) mmol/L Chloride 99 (98-107) mmol/L Carbon Dioxide 27.4 (21.0-32.0) mmol/L BUN 27 H (7.0-18.0) mg/dL Creatinine 1.1 (0.8-1.3) mg/dL Est Cr Clr Drug Dosing 120.56 mL/min Estimated GFR (MDRD) > 60.0 ml/min Glucose 107 H (74-106) mg/dL Calcium 9.1 (8.5-10.1) mg/dL Total Bilirubin 0.6 (0.2-1.0) mg/dL AST 11 L (15-37) IU/L ALT 54 (14-63) IU/L Alkaline Phosphatase 52 (46-116) U/L Total Protein 7.4 (6.4-8.2) g/dL Albumin 3.2 L (3.4-5.0) g/dL Globulin 4.2 H (2.6-4.0) g/dL Albumin/Globulin Ratio 0.8 L (0.9-1.6) Med Orders - Current: Current Medications Acetaminophen (Tylenol) 650 mg PO Q4H PRN PRN Reason: Pain (Mild 1-3)/fever Albuterol/Ipratropium (Combivent Respimat) 0 gm INH Q4HRRT [facility] Last Admin: 03/24/20 09:24 Dose: 1 puff Documented by: Amlodipine Besylate (Norvasc) 10 mg PO DAILY [facility] Last Admin: 03/24/20 09:23 Dose: 10 mg Documented by: Benzonatate (Tessalon Perles) 100 mg PO TID PRN PRN Reason: Cough Last Admin: 03/22/20 22:31 Dose: 100 mg Documented by: Clonidine HCl (Catapres) 0.1 mg PO BID [facility] Last Admin: 03/24/20 09:22 Dose: 0.1 mg Documented by: Dexamethasone (Dexamethasone) 6 mg PO DAILY [facility] Stop: 03/29/20 09:01 Last Admin: 03/24/20 09:23 Dose: 6 mg Documented by: Enoxaparin Sodium (Lovenox) 40 mg SUBCUT Q12H [facility] Last Admin: 03/24/20 00:43 Dose: 40 mg Documented by: Gemfibrozil (Lopid) 600 mg PO BID [facility] Last Admin: 03/24/20 09:22 Dose: 600 mg Documented by: Guaifenesin/Codeine Phosphate (Robitussin Ac) 5 ml PO Q4H PRN PRN Reason: Cough Last Admin: 03/23/20 01:18 Dose: 5 ml Documented by: Hydrochlorothiazide (Hydrochlorothiazide) 25 mg PO DAILY [facility] Last Admin: 03/24/20 09:23 Dose: 25 mg Documented by: Levofloxacin/Dextrose 750 mg/ (Premix) 150 mls @ 100 mls/hr IV Q24H [facility] Last Admin: 03/23/20 13:26 Dose: 100 mls/hr Documented by: Remdesivir 100 mg/ Sodium (Chloride) 100 mls @ 100 mls/hr IV Q24H [facility] Stop: 03/24/20 14:29 Last Admin: 03/23/20 14:58 Dose: 100 mls/hr Documented by: Lisinopril (Prinivil) 40 mg PO DAILY [facility] Last Admin: 03/24/20 09:22 Dose: 40 mg Documented by: Ondansetron HCl (Zofran) 4 mg IVPUSH Q4H PRN PRN Reason: Nausea Last Admin: 03/20/20 13:28 Dose: 4 mg Documented by: Sodium Chloride (Saline Flush) 2.5 ml FLUSH ASDIRECTED PRN PRN Reason: Keep Vein Open Discontinued Medications Albuterol (Proventil Hfa) 0 gm INH ONETIME ONE Stop: 03/20/20 12:05 Last Admin: 03/20/20 13:01 Dose: Not Given Documented by: Albuterol (Ventolin Hfa) Confirm Administered Dose 18 gm .ROUTE .STK-MED ONE Stop: 03/20/20 12:21 Last Admin: 03/20/20 12:27 Dose: 1 puff Documented by: Albuterol/Ipratropium (Combivent Respimat) 0 gm INH Q4H PRN PRN Reason: Dyspnea Albuterol/Ipratropium (Combivent Respimat) 0 gm INH Q4H [facility] Last Admin: 03/21/20 18:21 Dose: Not Given Documented by: Dexamethasone (Dexamethasone) 6 mg PO ONETIME ONE Stop: 03/20/20 12:00 Last Admin: 03/20/20 12:24 Dose: 6 mg Documented by: Furosemide (Lasix) 20 mg IVPUSH NOW ONE Stop: 03/22/20 10:09 Last Admin: 03/22/20 10:21 Dose: 20 mg Documented by: Lisinopril/HCTZ (Lisinopril-Hctz 10-12.5 Mg) 2 tab PO ONETIME ONE Stop: 03/20/20 11:09 Last Admin: 03/20/20 11:23 Dose: 2 tab Documented by: Remdesivir 100 mg/ Sodium (Chloride) 100 mls @ 100 mls/hr IV Q24H [facility] Stop: 03/24/20 14:29 Remdesivir 200 mg/ Sodium (Chloride) 250 mls @ 250 mls/hr IV ONETIME ONE Stop: 03/20/20 13:25 Last Admin: 03/20/20 14:26 Dose: 250 mls/hr Documented by: Sodium Chloride (Normal Saline) 500 mls @ 999 mls/hr IV ONETIME ONE Stop: 03/20/20 13:55 Last Admin: 03/20/20 14:25 Dose: 999 mls/hr Documented by: Pantoprazole Sodium 40 mg/ (Sodium Chloride) 10 mls @ 300 mls/hr IV ONETIME ONE Stop: 03/20/20 13:26 Last Admin: 03/20/20 13:59 Dose: 300 mls/hr Documented by: Iopamidol (Isovue Multipack-370 (76%)) 75 ml IVPUSH ONETIME STA Stop: 03/20/20 15:10 Last Admin: 03/20/20 15:18 Dose: 75 ml Documented by: Labetalol HCl (Normodyne) 20 mg IVPUSH ONETIME ONE; Protocol Stop: 03/20/20 11:08 Last Admin: 03/20/20 11:22 Dose: 20 mg Documented by: Sodium Chloride (Saline Flush) 10 ml FLUSH ASDIRECTED PRN PRN Reason: Keep Vein Open Last Admin: 03/20/20 11:23 Dose: 10 ml Documented by: Sodium Chloride (Saline Flush) 2.5 ml FLUSH ASDIRECTED PRN PRN Reason: Keep Vein Open Last Admin: 03/20/20 11:23 Dose: 2.5 ml Documented by: - Exam Quality Assessment: Supplemental Oxygen General: Alert, Oriented, Cooperative, No Acute Distress Lungs: Clear to Auscultation, Decreased Breath Sounds. No: Crackles, Rales Cardiovascular: Regular Rate, Regular Rhythm, No Murmurs GI/Abdominal Exam: Normal Bowel Sounds, Soft, Non-Tender Sepsis Event Note - Evaluation Sepsis Screening Result: No Definite Risk - Focused Exam Vital Signs: Vital Signs Temp Pulse Resp BP BP BP Pulse Ox 03/24/20 10:00 03/24/20 09:23 137/75 03/24/20 09:22 137/75 03/24/20 08:00 36.0 C L 79 18 137/75 95 03/24/20 04:00 36.0 C L 66 18 122/66 92 L Pulse Ox 03/24/20 10:00 95 03/24/20 09:23 03/24/20 09:22 03/24/20 08:00 03/24/20 04:00 - Problem List & Annotations (1) Acute respiratory failure with hypoxia SNOMED Code(s): 84308821, 447131419 Code(s): J96.01 - ACUTE RESPIRATORY FAILURE WITH HYPOXIA Status: Acute Current Visit: Yes (2) CAP (community acquired pneumonia) SNOMED Code(s): 188119423 Code(s): J18.9 - PNEUMONIA, UNSPECIFIED ORGANISM Status: Acute Current Visit: Yes (3) COVID-19 SNOMED Code(s): 563703149 Code(s): U07.1 - COVID-19 Status: Acute Current Visit: Yes (4) Hypoxemia SNOMED Code(s): 316944930 Code(s): R09.02 - HYPOXEMIA Status: Acute Current Visit: Yes (5) Pneumonia due to 2019 novel coronavirus SNOMED Code(s): 965030279773401621 Code(s): U07.1 - COVID-19; J12.89 - OTHER VIRAL PNEUMONIA Status: Acute Current Visit: Yes (6) HLD (hyperlipidemia) SNOMED Code(s): 65688855 Code(s): E78.5 - HYPERLIPIDEMIA, UNSPECIFIED Status: Chronic Current Visit: Yes (7) Hypertension, uncontrolled SNOMED Code(s): 64427938, 14981085 Code(s): I10 - ESSENTIAL (PRIMARY) HYPERTENSION Status: Chronic Current Visit: Yes - Problem List Review Problem List Initiated/Reviewed/Updated: Yes - Plan Plan:: This 29-year-old male admitted with acute hypoxic respiratory failure COVID-19 pneumonia and CAP 1. Acute hypoxic respiratory failure/COVID-19 pneumonia/CAP -Oxygen to keep sats greater than 90% wean as possible, on 2.5L now, improving -Last dose of remdesivir today -Dexamethasone 6 mg p.o. daily -Encouraged prone or at least left side-lying position to encourage oxygenation again. -I-S and Acapella use -cont Levaquin 750 mg IV daily for possible CAP -Lovenox 40 mg every 12 -Monitor LFTs daily with remdesivir treatment 2. Transaminitis -Likely related to viral infection - improving 3. Hypertension uncontrolled/HLD -Monitor blood pressure and slowly restart medications VTE prophylaxis: Lovenox CODE STATUS: Full code Dispo: 2 to 3 days pending improvement
[2020-03-24] MEDS: Levofloxacin/Dextrose 5%-Water 750 MG in Premix Bag 1 BAG IV SCH (13:16)
[2020-03-24] MEDS: Codeine/guaiFENesin 10-100 MG/5 ML Syrup 5 ML Cup PO PRN (13:16)
[2020-03-24] MEDS: REMDESIVIR 100 MG in Sodium Chloride 0.9% 100 ML IV SCH (13:52)
[2020-03-25] MEDS: Albuterol/Ipratropium 4 GM Inhalation Spray INH SCH ×3 (01:11→09:20)
[2020-03-25] MEDS: Enoxaparin 40 MG/0.4 ML Syringe SUBCUT SCH (01:11)
[2020-03-25 06:53] LABS: BLOOD UREA NITROGEN,BUN 26 mg/dL (7.0-18.0); CARBON DIOXIDE,CO2 23.5 mmol/L (21.0-32.0); CHLORIDE,CL 99 mmol/L (98-107); GLUCOSE RANDOM 102 mg/dL (74-106); POTASSIUM,K 4.1 mmol/L (3.5-5.1); SODIUM,NA 134 mmol/L (136-148)
[2020-03-25] MEDS: Hydrochlorothiazide 25 MG Tab PO SCH (09:14)
[2020-03-25] MEDS: cloNIDine 0.1 MG Tab PO SCH (09:14)
[2020-03-25] MEDS: Gemfibrozil 600 MG Tab PO SCH (09:14)
[2020-03-25] MEDS: amLODIPine 5 MG Tab PO SCH (09:14)
[2020-03-25] MEDS: Dexamethasone 4 MG Tab PO SCH (09:15)
[2020-03-25] MEDS: Lisinopril 10 MG Tab PO SCH (09:15)
--- NOTE | 2020-03-25 12:50 | PCM.DCSUM1 ---
Discharge Summary - Hospital Course HPI Initial Comments: This 29-year-old male with PMH of HTN and HLD along with obesity presented to the ER with complaints of neurolyse malaise and shortness of breath. He reports that approximately 1 week ago he started feeling like he was getting a cold with some mild sinus congestion and overall just not feeling well. He reports the last 3 to 4 days he had significantly worsened with fevers chills increasing shortness of breath with any activity dry cough along with nausea and vomiting. He denies any chest pain or palpitations. No abdominal pain no constipation or diarrhea. He reports he is urinating fine. He denies any focal neurological deficits. He reports that he has been to community with no known exposure to COVID-19. Denies any flu shot recently and declines a flu shot during this admission. He reports he has not tried any Tylenol or ibuprofen to help with headache. Reports the headache is more frontal no blurred vision or double vision. Denies any noise or light intolerance. He reports he quit smoking and using chewing tobacco approximately 1 year ago as well as quitting alcohol use. He denies any recreational drug use now. He reports that he has a history of hypertension and hyperlipidemia but has not taken meds for over 2 months. He reports he got his medications filled and [place] and has just not taken them. He reports no specific reason except for that he has forgotten. In the ER no leukocytosis noted hemoglobin noted at 15. Glucose 116 BUN creatinine stable no electrolyte abnormalities. AST ALT noted to be elevated at 119 and 151 respectively. Chest x-ray revealed left upper lobe infiltrate consistent with pneumonia Covid viral infection is possible small infiltrate may be present in left lower lobe right lung is clear no effusions or pneumothorax noted. He was treated with dexamethasone 6 mg in the ER. He was also noted to be hypoxic with sats 88% on room air with tachypnea on arrival. He was placed on 2 L satting 92 to 94% on this. He was also noted to be hypertensive 190s/ 110. He was given labetalol IV as well as lisinopril hydrochlorothiazide orally. Blood pressures have improved. CTA chest was done which was negative for PE, showed b/l glass ground opacities, He was admitted for acute hypoxic r espiratory failure and COVID-19 pneumonia as well as CAP. Brief History: Patients oxygen requirment increaded to 5lts over next day. He was satrted on Remdesivir, dexamethasone, BID lovenox, combivent. He also was started on IV antibiotics (Levaquin 750 IV daily). He reccved 2 units of convalescent plasma. Patient was encouraged to prone ans use IS as much as possible. Patient was eevnatually weaned off the oxygen to RA. He passed his ambulatory trial on RA as well. He was medically stable for dc on PO steroids and PO Antibiotics and low dose aspirin. - Discharge Data Discharge Date: 03/25/20 Discharge Disposition: Home, Self-Care 01 Condition: Good - Referral to Home Health Primary Care Physician: PCP Not In Area - Discharge Diagnosis/Problem(s) (1) Acute respiratory failure with hypoxia SNOMED Code(s): 11647867, 769634470 ICD Code: J96.01 - ACUTE RESPIRATORY FAILURE WITH HYPOXIA Status: Acute Current Visit: Yes (2) CAP (community acquired pneumonia) SNOMED Code(s): 705092640 ICD Code: J18.9 - PNEUMONIA, UNSPECIFIED ORGANISM Status: Acute Current Visit: Yes (3) COVID-19 SNOMED Code(s): 989397674 ICD Code: U07.1 - COVID-19 Status: Acute Current Visit: Yes (4) Hypoxemia SNOMED Code(s): 446395758 ICD Code: R09.02 - HYPOXEMIA Status: Acute Current Visit: Yes (5) Pneumonia due to 2019 novel coronavirus SNOMED Code(s): 540909345417312343 ICD Code: U07.1 - COVID-19; J12.89 - OTHER VIRAL PNEUMONIA Status: Acute Current Visit: Yes (6) HLD (hyperlipidemia) SNOMED Code(s): 10181998 ICD Code: E78.5 - HYPERLIPIDEMIA, UNSPECIFIED Status: Chronic Current Visit: Yes (7) Hypertension, uncontrolled SNOMED Code(s): 03385692, 25602119 ICD Code: I10 - ESSENTIAL (PRIMARY) HYPERTENSION Status: Chronic Current Visit: Yes - Discharge Plan Prescriptions/Med Rec: Aspirin 81 mg PO DAILY #30 tab.chew Albuterol/Ipratropium [Combivent Respimat] 0 gm INH Q4HRRT #1 inhaler dexAMETHasone [Dexamethasone] 6 mg PO DAILY #4 tablet guaiFENesin [Expectorant Cough Syrup] 100 mg PO Q8H PRN #1 bottle PRN Reason: Cough levoFLOXacin [Levaquin] 750 mg PO DAILY #4 tab Home Medications: Home Meds amLODIPine Besylate [Amlodipine Besylate] 10 mg PO DAILY 03/20/20 [History] cloNIDine [Catapres] 0.1 mg PO BID 03/20/20 [History] gemfibroziL [Gemfibrozil] 600 mg PO BID 03/20/20 [History] hydroCHLOROthiazide [Hydrochlorothiazide] 25 mg PO DAILY 03/20/20 [History] lisinopriL [Lisinopril] 40 mg PO DAILY 03/20/20 [History] Albuterol/Ipratropium [Combivent Respimat] 0 gm INH Q4HRRT #1 inhaler 03/25/20 [Rx] Aspirin 81 mg PO DAILY #30 tab.chew 03/25/20 [Rx] dexAMETHasone [Dexamethasone] 6 mg PO DAILY #4 tablet 03/25/20 [Rx] guaiFENesin [Expectorant Cough Syrup] 100 mg PO Q8H PRN #1 bottle 03/25/20 [Rx] levoFLOXacin [Levaquin] 750 mg PO DAILY #4 tab 03/25/20 [Rx] Patient Handouts: Albuterol; Ipratropium respiratory inhalation spray (Combivent Respimat), COVID-19 Frequently Asked Questions, COVID-19: How to Protect Yourself and Others - CDC, Levofloxacin tablets, Aspirin, ASA oral tablets, Dexamethasone tablets - Discharge Summary/Plan Comment DC Time >30 min.: No - Patient Data Vitals - Most Recent: Last Vital Signs Temp 36.1 C 03/25/20 11:13 Pulse 91 03/25/20 11:13 Resp 18 03/25/20 11:13 BP 130/76 03/25/20 11:13 Pulse Ox 94 L 03/25/20 11:13 Weight - Most Recent: 170.097 kg I&O - Last 24 hours: Intake & Output 03/24/20 03/25/20 03/25/20 22:59 06:59 14:59 Intake Total 560 1000 Output Total 1350 1500 Balance -790 -500 Lab Results - Last 24 hrs: Laboratory Results - last 24 hr 11/29/20 11/29/20 Range/Units 05:45 05:45 WBC 11.37 H (4.0-11.0) K/uL RBC 5.26 (4.50-5.90) M/uL Hgb 15.8 (13.0-17.0) g/dL Hct 46.2 (38.0-50.0) % MCV 87.8 (80.0-98.0) fL MCH 30.0 (27.0-32.0) pg MCHC 34.2 (31.0-37.0) g/dL RDW Std Deviation 42.5 (28.0-62.0) fl RDW Coeff of [place]rtle 13 (11.0-15.0) % Plt Count 430 H (150-400) K/uL MPV 10.20 (7.40-12.00) fL Add Manual Diff YES Neutrophils % (Manual) 62 (48.0-80.0) % Band Neutrophils % 1 % Lymphocytes % (Manual) 26 (16.0-40.0) % Monocytes % (Manual) 5 (0.0-15.0) % Eosinophils % (Manual) 1 (0.0-7.0) % Metamyelocytes % 4 % Myelocytes % 1 % Nucleated RBC % 0.0 /100WBC Absolute Seg Neuts 7.0 H (1.4-5.7) Band Neutrophils # 0.1 Lymphocytes # (Manual) 3.0 H (0.6-2.4) Monocytes # (Manual) 0.6 (0.0-0.8) Eosinophils # (Manual) 0.1 (0.0-0.7) Absolute Metamyelocyte 0.5 Absolute Myelocytes 0.1 Nucleated RBCs # 0 K/uL Sodium 134 L (136-148) mmol/L Potassium 4.1 (3.5-5.1) mmol/L Chloride 99 (98-107) mmol/L Carbon Dioxide 23.5 (21.0-32.0) mmol/L BUN 26 H (7.0-18.0) mg/dL Creatinine 1.1 (0.8-1.3) mg/dL Est Cr Clr Drug Dosing 120.56 mL/min Estimated GFR (MDRD) > 60.0 ml/min Glucose 102 (74-106) mg/dL Calcium 9.2 (8.5-10.1) mg/dL Phosphorus 4.2 (2.6-4.7) mg/dL Magnesium 2.3 (1.8-2.4) mg/dL Med Orders - Current: Current Medications Acetaminophen (Tylenol) 650 mg PO Q4H PRN PRN Reason: Pain (Mild 1-3)/fever Albuterol/Ipratropium (Combivent Respimat) 0 gm INH Q4HRRT [facility] Last Admin: 03/25/20 09:20 Dose: 1 puff Documented by: Amlodipine Besylate (Norvasc) 10 mg PO DAILY [facility] Last Admin: 03/25/20 09:14 Dose: 10 mg Documented by: Benzonatate (Tessalon Perles) 100 mg PO TID PRN PRN Reason: Cough Last Admin: 03/22/20 22:31 Dose: 100 mg Documented by: Clonidine HCl (Catapres) 0.1 mg PO BID [facility] Last Admin: 03/25/20 09:14 Dose: 0.1 mg Documented by: Dexamethasone (Dexamethasone) 6 mg PO DAILY [facility] Stop: 03/29/20 09:01 Last Admin: 03/25/20 09:15 Dose: 6 mg Documented by: Enoxaparin Sodium (Lovenox) 40 mg SUBCUT Q12H [facility] Last Admin: 03/25/20 01:11 Dose: 40 mg Documented by: Gemfibrozil (Lopid) 600 mg PO BID [facility] Last Admin: 03/25/20 09:14 Dose: 600 mg Documented by: Guaifenesin/Codeine Phosphate (Robitussin Ac) 5 ml PO Q4H PRN PRN Reason: Cough Last Admin: 03/24/20 13:16 Dose: 5 ml Documented by: Hydrochlorothiazide (Hydrochlorothiazide) 25 mg PO DAILY [facility] Last Admin: 03/25/20 09:14 Dose: 25 mg Documented by: Levofloxacin/Dextrose 750 mg/ (Premix) 150 mls @ 100 mls/hr IV Q24H [facility] Last Admin: 03/24/20 13:16 Dose: 100 mls/hr Documented by: Lisinopril (Prinivil) 40 mg PO DAILY [facility] Last Admin: 03/25/20 09:15 Dose: 40 mg Documented by: Ondansetron HCl (Zofran) 4 mg IVPUSH Q4H PRN PRN Reason: Nausea Last Admin: 03/20/20 13:28 Dose: 4 mg Documented by: Sodium Chloride (Saline Flush) 2.5 ml FLUSH ASDIRECTED PRN PRN Reason: Keep Vein Open Discontinued Medications Albuterol (Proventil Hfa) 0 gm INH ONETIME ONE Stop: 03/20/20 12:05 Last Admin: 03/20/20 13:01 Dose: Not Given Documented by: Albuterol (Ventolin Hfa) Confirm Administered Dose 18 gm .ROUTE .STK-MED ONE Stop: 03/20/20 12:21 Last Admin: 03/20/20 12:27 Dose: 1 puff Documented by: Albuterol/Ipratropium (Combivent Respimat) 0 gm INH Q4H PRN PRN Reason: Dyspnea Albuterol/Ipratropium (Combivent Respimat) 0 gm INH Q4H [facility] Last Admin: 03/21/20 18:21 Dose: Not Given Documented by: Dexamethasone (Dexamethasone) 6 mg PO ONETIME ONE Stop: 03/20/20 12:00 Last Admin: 03/20/20 12:24 Dose: 6 mg Documented by: Furosemide (Lasix) 20 mg IVPUSH NOW ONE Stop: 03/22/20 10:09 Last Admin: 03/22/20 10:21 Dose: 20 mg Documented by: Lisinopril/HCTZ (Lisinopril-Hctz 10-12.5 Mg) 2 tab PO ONETIME ONE Stop: 03/20/20 11:09 Last Admin: 03/20/20 11:23 Dose: 2 tab Documented by: Remdesivir 100 mg/ Sodium (Chloride) 100 mls @ 100 mls/hr IV Q24H [facility] Stop: 03/24/20 14:29 Remdesivir 200 mg/ Sodium (Chloride) 250 mls @ 250 mls/hr IV ONETIME ONE Stop: 03/20/20 13:25 Last Admin: 03/20/20 14:26 Dose: 250 mls/hr Documented by: Sodium Chloride (Normal Saline) 500 mls @ 999 mls/hr IV ONETIME ONE Stop: 03/20/20 13:55 Last Admin: 03/20/20 14:25 Dose: 999 mls/hr Documented by: Pantoprazole Sodium 40 mg/ (Sodium Chloride) 10 mls @ 300 mls/hr IV ONETIME ONE Stop: 03/20/20 13:26 Last Admin: 03/20/20 13:59 Dose: 300 mls/hr Documented by: Remdesivir 100 mg/ Sodium (Chloride) 100 mls @ 100 mls/hr IV Q24H [facility] Stop: 03/24/20 14:29 Last Admin: 03/24/20 13:52 Dose: 100 mls/hr Documented by: Iopamidol (Isovue Multipack-370 (76%)) 75 ml IVPUSH ONETIME STA Stop: 03/20/20 15:10 Last Admin: 03/20/20 15:18 Dose: 75 ml Documented by: Labetalol HCl (Normodyne) 20 mg IVPUSH ONETIME ONE; Protocol Stop: 03/20/20 11:08 Last Admin: 03/20/20 11:22 Dose: 20 mg Documented by: Sodium Chloride (Saline Flush) 10 ml FLUSH ASDIRECTED PRN PRN Reason: Keep Vein Open Last Admin: 03/20/20 11:23 Dose: 10 ml Documented by: Sodium Chloride (Saline Flush) 2.5 ml FLUSH ASDIRECTED PRN PRN Reason: Keep Vein Open Last Admin: 03/20/20 11:23 Dose: 2.5 ml Documented by:
== END 2020-03-25 14:25 | disposition home or self-care (01) | DRG 177 ==
LOC: MW.ED 10:11 → MW.MS 13:09
PROVIDERS: ADMIT Internal Medicine; ATTEND Internal Medicine
PROC: XW033E5 Introduction of Remdesivir Anti-infective into Peripheral Vein, Percutaneous Approach, New Technology Group 5 (ICD-10-PCS; principal; 2020-03-20)
PROC: XW13325 Transfusion of Convalescent Plasma (Nonautologous) into Peripheral Vein, Percutaneous Approach, New Technology Group 5 (ICD-10-PCS; 2020-03-20)
DX: U07.1 COVID-19 (principal); J12.89 Other viral pneumonia; J96.01 Acute respiratory failure with hypoxia; Z68.42 Body mass index [BMI] 45.0-49.9, adult; E78.5 Hyperlipidemia, unspecified; I10 Essential (primary) hypertension; E66.9 Obesity, unspecified; E78.00 Pure hypercholesterolemia, unspecified; R74.01 Elevation of levels of liver transaminase levels; Z87.891 Personal history of nicotine dependence; Z98.890 Other specified postprocedural states
CPT/HCPCS: 36415; 36430; 71045; 71045-26; 71275; 71275-26; 80048; 80053; 83036; 83735; 84100; 85025; 86850; 86900; 86901; 93010; 94640; 96374; 99222; 99232; 99238; 99284; 99285-25; A9270-GY; C9113; J1650; J1940; J1956; J2405; J3490; J3535-GY; J7040; J7050; J8540; P9017; Q9967; U0002

== ENCOUNTER 2022-09-07 11:50 | Emergency (ER) | payer BC, OTHER ==
[2022-09-07 13:14] LABS: BASOPHILS PERCENT AUTO 0.3 % (0.0-1.5); EOSINOPHILS ABSOLUTE AUTO 0.2 K/uL (0.0-0.7); EOSINOPHILS PERCENT AUTO 3.6 % (0.0-7.0); HEMATOCRIT 45.6 % (38.0-50.0); HEMOGLOBIN 16.3 g/dL (13.0-17.0); LYMPHOCYTES PERCENT AUTO 16.5 % (16.0-40.0); MEAN CORPUSCULAR HEMOGLOBIN 29.6 pg (27.0-32.0); MEAN CORPUSCULAR HGB CONC 35.7 g/dL (31.0-37.0); MEAN CORPUSCULAR VOLUME 82.9 fL (80.0-98.0); MONOCYTES ABSOLUTE AUTO 0.8 K/uL (0.0-0.8); MONOCYTES PERCENT AUTO 12.9 % (0.0-15.0); NEUTROPHILS ABSOLUTE AUTO 3.9 K/uL (1.4-5.7); NEUTROPHILS PERCENT AUTO 66.7 % (48.0-80.0); NRBC ABSOLUTE 0 K/uL; PLATELET COUNT,PLT 324 K/uL (150-400); WHITE BLOOD CELL COUNT,WBC 5.88 K/uL (4.0-11.0)
[2022-09-07 13:40] LABS: ALBUMIN 3.9 g/dL (3.4-5.0); BILIRUBIN TOTAL 0.7 mg/dL (0.2-1.0); CALCIUM 9.7 mg/dL (8.5-10.1); CARBON DIOXIDE,CO2 27.5 mmol/L (21.0-32.0); CREATININE 1.3 mg/dL (0.8-1.3); EST CRCL DRUG DOSING (CG) 99.31 mL/min; POTASSIUM,K 4.5 mmol/L (3.5-5.1); PROTEIN TOTAL,TP 7.7 g/dL (6.4-8.2)
[2022-09-07 13:45] LABS: TSH ULTRASENSITIVE 1.51 uIU/mL (0.36-3.74)
[2022-09-07] MEDS ORDERED: Iopamidol 755 MG/ML 500 ML Multipack Bottle IVPUSH ONE ×2 (14:17→15:52)
== END 2022-09-07 16:37 | disposition home or self-care (01) ==
LOC: MW.ED 11:50
DX: R05.9 Cough, unspecified (principal); E78.00 Pure hypercholesterolemia, unspecified; I10 Essential (primary) hypertension; E66.9 Obesity, unspecified; Z68.42 Body mass index [BMI] 45.0-49.9, adult; Z86.16 Personal history of COVID-19; Z79.82 Long term (current) use of aspirin
CPT/HCPCS: 36415; 71046; 71260; 71275; 74177; 80053; 83880; 84443; 84484; 85025; 85379; 85652; 86308; 93005; 99285; Q9967; 93010; 99284